=== PATIENT | male | born 1995 | race Two or more races ===

== ENCOUNTER 2021-02-04 07:12 | Emergency (ER) | payer MEDICAID, SELFPAY ==
[2021-02-04 07:15] VITALS: BP 139/60; PULSE 65; RESP 12; TEMP 36; O2SAT 100; BMI 22.6
--- NOTE | 2021-02-04 07:50 | ED_ITS ---
HPI - General Adult General Chief complaint: Abdominal Pain Stated complaint: abd pain, vomiting Time Seen by Provider: 02/04/21 07:26 Source: patient and family ( Radha) Mode of arrival: ambulatory Limitations: no limitations History of Present Illness HPI narrative: 25-year-old male who presents emergency department for evaluation of vomiting and abdominal pain. The patient states that he has had abdominal pain and vomiting for 2 years. He states that over the past week his symptoms got worse. He states that he vomits 4-5 times at night, the vomiting usually starts at around 2 or 3:00 a.m. in the morning. He states that this morning he vomited for 5 times and did notice streaks of blood in his emesis. The patient also complains of abdominal pain. He points to his epigastric area when asked to localize the pain. Describes the pain as sharp pain which is intermittent, the pain is 8/10 at its worst. The pain is made worse with eating. The patient states that approximately 1 year prior he was seen at [facility] with similar symptoms but also had blood per rectum. He states that his provider referred him to a teaching supervisor but he never followed up. He states that he has not had any similar episodes of hematochezia, he denies any changes bowel movements. Patient states that in the past he has been on omeprazole and this has helped. He states that he does have an acid taste in the back of his throat and takes Tums on a regular basis. The patient states that over the last 2 years he has lost 38 lb unintentionally. Patient also smokes marijuana 4 to 5 times a day. Related Data Previous Rx's Medication Instructions Recorded omeprazole 20 mg capsule,delayed 20 mg PO DAILY #30 cap 02/04/21 release ondansetron 4 mg disintegrating 4 mg PO Q6-8H PRN #20 tab 02/04/21 tablet Allergies Allergy/AdvReac Type Severity Reaction Status Date / Time bee pollen [BEE STINGS] AdvReac Severe ANAPHYLAXIS Unverified 01/23/20 18:56 Review of Systems Review of Systems: Yes all other systems are reviewed and are negative [facility] Past Medical History [facility] Narrative: Past medical history: Asthma. 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 The patient is and his is here in the emergency department with him. The patient smokes 1/2 pack of cigarettes x1 year. He states that he rarely drinks alcohol. The patient does smoke marijuana 4 to 5 times a day for at least 2 years. He denies any other drug use. Social History Social History Patient Tobacco Use Status: Current everyday Tobacco user Use of substances other than those prescribed or required for medical reasons: Yes Substance Use Type: Marijuana Substance Use Frequency: Daily Advance Directives: No Advance Directives Information Provided: No Physical Exam Vital Signs: Vital Signs: Last Vital Signs Temp 96.8 F 02/04/21 07:15 Pulse 65 02/04/21 07:15 Resp 12 02/04/21 07:15 BP 139/60 02/04/21 07:15 Pulse Ox 100 02/04/21 07:15 Body Mass Index 22.6 Const: General: cooperative and no acute distress Orientation/consciousness: oriented to person and oriented to place Limitations: no limitations HENMT: Head: Yes normal to inspection, Yes normocephalic and Yes atraumatic Ears: external ears normal General nose exam: Normal external nose present Face and sinus: Yes normal facial exam Mouth: Normal oral and palatal mucosa present Throat: Yes posterior oropharynx normal Eyes: General: appearance normal, both eyes and all related structures Pupils: Equal, round and reactive pupils present Neck: Neck: Yes normal visual inspection, Yes no lymphadenopathy, Yes trachea midline and Yes supple Chest: Chest palpation & inspection: normal inspection of the chest and normal palpation of entire chest wall Resp: Effort & Inspection: normal respiratory effort and able to speak in complete sentences Auscultation: clear to auscultation bilaterally Cardio: Rate: regular rate Rhythm: regular rhythm Heart sounds: S1 normal heart sound present, S2 normal heart sound present and no murmurs GI: Inspection: Yes normal to inspection Palpation (GI): Soft to palpation, nontender and no guarding Auscultation: normal bowel sounds : General: Yes no CVA tenderness Back/Spine/Pelvis: Back: no CVA tenderness Skin: General skin exam: no rashes or lesions noted Neuro: General: oriented to person and oriented to place Cranial nerves: Yes CN's II-XII intact bilaterally and Yes Equal, round and reactive pupils present Cognition (Neuro): normal cognition Motor exam (neuro): 5/5 motor strength present throughout Extrem: General: Yes normal to inspection Psych: Appearance: grossly normal Speech and movement: Normal speech and mo vement present Affect: normal affect Attitude: cooperative Thought process: Normal thought process present Thought content: Normal thought content present Course Course Course Narrative: 25-year-old male who presents emergency department for evaluation of 1 week of vomiting multiple episodes mainly at night, states that last night he vomited 4-5 times and did notice streaks of blood in his emesis. Patient states that he vomits frequently over the past 2 years and vomiting is often at night. He also complains of midepigastric pain. Patient has had a 38 lb weight loss over 2 years. The patient does smoke marijuana daily. Vital signs were normal. examination was unremarkable, the patient has no abdominal tenderness at this time. I did order laboratory evaluation to include CBC, CMP, lipase. Patient will be treated with normal saline IV x1 L and Zofran 4 mg IV. 0856: Patient is feeling better after the above treatment. Patient's CBC, CMP and lipase were normal. The patient was started on omeprazole 20 mg once a day for 1 month and Zofran ODT 4 mg every 6-8 hours as needed for nausea and vomiting. He was advised to stop smoking marijuana. The patient was discharged home. Medical Decision Making Lab Data Result diagrams: 02/04/21 07:55 02/04/21 07:55 Labs: Lab Results 02/04/21 02/04/21 Range/Units 07:55 07:55 WBC 10.1 (4.8-10.8) X10*3/uL RBC 5.41 (4.60-5.80) X10*6/uL Hgb 15.3 (14.0-18.0) g/dl Hct 45.9 (42-52) % MCV 84.8 (80-98) fL MCH 28.3 (27.0-33.0) pg MCHC 33.3 (31.0-36.0) g/dl RDW 12.2 (11.0-16.0) % Plt Count 307 (160-400) X10*3/uL MPV 9.5 (9.4-12.4) fL Immature Gran % (Auto) 0.4 (0.0-0.4) % Neut % (Auto) 77.3 H (45-73) % Lymph % (Auto) 15.8 L (20-40) % Putnam % (Auto) 5.6 (2-11) % Eos % (Auto) 0.6 (0-4) % Baso % (Auto) 0.3 (0-2) % Lymph # (Auto) 1.6 (1.2-4.9) X10*3/uL Putnam # (Auto) 0.6 (0.1-1.2) X10*3/uL Eos # (Auto) 0.1 (0.0-0.4) X10*3/uL Baso # (Auto) 0.0 (0.0-0.2) X10*3/uL Abs Immat Gran (auto) 0.04 H (0.00-0.03) X10*3/uL Absolute Neuts (auto) 7.8 (2.0-8.3) X10*3/uL Absolute Nucleated RBC 0.000 (0.0-0.012) X10*3/uL Nucleated RBC % (auto) 0.0 (0.0-0.2) /100WBC Sodium 138 (135-145) mmol/L Potassium 4.2 (3.3-5.1) mmol/L Chloride 104 (96-108) mmol/L Carbon Dioxide 24 (22-29) mmol/L Anion Gap 14 (12-20) BUN 8 L (9-16) mg/dL Creatinine 0.82 (0.5-1.4) mg/dL Estim Creat Clear Calc 141.8 Estimated GFR > 60 Random Glucose 100 (60-115) mg/dL Calcium 9.9 (8.4-10.2) mg/dL Total Bilirubin 0.9 (0.0-1.0) mg/dL AST 16 (5-37) U/L ALT 12 (0-40) U/L Alkaline Phosphatase 75 (39-117) U/L Total Protein 8.1 H (6.5-8.0) g/dL Albumin 4.7 (3.5-5.0) g/dL Lipase 19 (8-78) U/L Discharge Plan Discharge Clinical Impression: Cannabinoid hyperemesis syndrome Gastritis Qualifiers: Gastritis type: unspecified gastritis Chronicity: acute Gastritis bleeding: without bleeding Qualified Code(s): K29.00 - Acute gastritis without bleeding Hematemesis Qualifiers: Nausea presence: with nausea Qualified Code(s): K92.0 - Hematemesis Patient Disposition: Home, Self-Care Instructions: Gastritis (ED), Cyclic Vomiting Syndrome (ED) Additional Instructions: Your blood work was normal which is reassuring. Your symptoms and exam are consistent with gastritis (inflammation of the stomach) I am prescribing Prilosec (omeprazole) 20 mg pills, take 1 pill once a day for 1 month. This medication shots off the acid production your stomach nebulizer stomach and esophagus to heal. I am also prescribing Take Zofran ODT 4 mg pills, 1 pill dissolved in your mouth every 8 hours as needed for nausea and vomiting. Recurrent vomiting is often caused by daily marijuana use. This is called cyclic vomiting syndrome or marijuana/cannabis hyperemesis syndrome. The treatment is to stop smoking marijuana for at least 6 weeks and they should improve your nausea and vomiting as well. Follow-up with your doctor in 2 days. Please return to the emergency department if your symptoms get worse or if you develop any symptoms that are concerning to you. Prescriptions: New omeprazole 20 mg capsule,delayed release(DR/EC) 20 mg PO DAILY Qty: 30 RF: 0 ondansetron 4 mg tablet,disintegrating 4 mg PO Q6-8H PRN (Reason: nausea and vomiting) Qty: 20 RF: 0
[2021-02-04 07:58] LABS: MANUAL DIFF FLAG NO
[2021-02-04] MEDS: ondansetron HCL 4 MG/2 ML VIAL IVPUSH (07:59)
[2021-02-04] MEDS: 0.9 % Sodium Chloride 1,000 ML 999 ML IV (07:59)
[2021-02-04 08:02] LABS: Basophils Percent Auto 0.3 % (0-2); Eosinophils Absolute Auto 0.1 X10*3/uL (0.0-0.4); Eosinophils Percent Auto 0.6 % (0-4); Hematocrit 45.9 % (42-52); Hemoglobin 15.3 g/dl (14.0-18.0); Imm Gran Abs Auto 0.04 X10*3/uL (0.00-0.03); Imm Gran Pct Auto 0.4 % (0.0-0.4); Lymphocytes Absolute Auto 1.6 X10*3/uL (1.2-4.9); Lymphocytes Percent Auto 15.8 % (20-40); Mean Corpuscular HGB Conc 33.3 g/dl (31.0-36.0); Mean Corpuscular Hemoglobin 28.3 pg (27.0-33.0); Mean Corpuscular Volume 84.8 fL (80-98); Mean Platelet Volume 9.5 fL (9.4-12.4); Monocytes Absolute Auto 0.6 X10*3/uL (0.1-1.2); Monocytes Percent Auto 5.6 % (2-11); Neutrophils Absolute Auto 7.8 X10*3/uL (2.0-8.3); Neutrophils Percent Auto 77.3 % (45-73); Platelet Count 307 X10*3/uL (160-400); Red Blood Count 5.41 X10*6/uL (4.60-5.80); Red Cell Distribution Width 12.2 % (11.0-16.0); White Blood Count 10.1 X10*3/uL (4.8-10.8)
[2021-02-04 08:20] LABS: Alanine Aminotransferase 12 U/L (0-40); Albumin Level 4.7 g/dL (3.5-5.0); Alkaline Phosphatase 75 U/L (39-117); Anion Gap 14 (12-20); Aspartate Amino Transferase 16 U/L (5-37); Bilirubin Total 0.9 mg/dL (0.0-1.0); Blood Urea Nitrogen 8 mg/dL (9-16); Calcium 9.9 mg/dL (8.4-10.2); Carbon Dioxide 24 mmol/L (22-29); Chloride 104 mmol/L (96-108); Creatinine Clr Calc Pharmacy 141.8; Estimated Glomerular Filt Rate > 60; Glucose Random 100 mg/dL (60-115); Lipase 19 U/L (8-78); Potassium 4.2 mmol/L (3.3-5.1); Sodium 138 mmol/L (135-145); Total Protein 8.1 g/dL (6.5-8.0)
[2021-02-04 09:02] VITALS: BP 114/70; PULSE 64; RESP 15; TEMP 36.8; O2SAT 98
== END 2021-02-04 09:12 | disposition home or self-care (01) ==
PROVIDERS: Emergency Provider Emergency Medicine Emergency Medical Services; PCP Student in an Organized Health Care Education/Training Program
DX: K29.00 Acute gastritis without bleeding (principal); K92.0 Hematemesis; F12.99 Cannabis use, unspecified with unspecified cannabis-induced disorder; F17.200 Nicotine dependence, unspecified, uncomplicated; Z71.6 Tobacco abuse counseling; Z79.899 Other long term (current) drug therapy
CPT/HCPCS: 36415; 80053; 83690; 85025; 96361; 96374; 99284; J2405

== ENCOUNTER 2023-01-16 14:58 | Outpatient (REF) | payer MEDICAID, SELFPAY ==
[2023-01-18 12:34] LABS: C. trachomatis RNA TMA NOT DETECTED (NOT DETECTED); N. gonorrhoeae RNA TMA NOT DETECTED (NOT DETECTED)
== END 2023-01-16 14:59 | disposition home or self-care (01) ==
LOC: HO.CHCLNP 14:58
PROVIDERS: Visit Provider Family Medicine
DX: N48.1 Balanitis (principal)
CPT/HCPCS: 36415; 87491; 87591

== ENCOUNTER 2023-05-27 15:12 | Emergency (ER) | payer SELFPAY ==
--- NOTE | ~2023-05-27 | XR_ITS ---
EXAMINATION: XR HAND, RIGHT CLINICAL INFORMATION: Work injury tenderness swelling. COMPARISON: None available. TECHNIQUE: PA, lateral, and oblique views of the right hand. FINDINGS: The bones and soft tissues are normal. No fracture. Alignment is anatomic. Joint spaces are maintained. No erosions or soft tissue calcifications. XR/XR hand RT min 3V IMPRESSION: Normal right hand.
[2023-05-27 15:14] VITALS: BP 117/77; PULSE 75; RESP 18; TEMP 36.1; O2SAT 98; BMI 28.4
--- NOTE | 2023-05-27 15:14 | ED.GENADULT ---
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 Currently is without pain but he does have localized swelling over the dorsum of the 2nd MCP Related Data Previous Rx's Medication Instructions Recorded omeprazole 20 mg capsule,delayed 20 mg PO DAILY #30 caps 02/04/21 release ondansetron 4 mg disintegrating 4 mg PO Q6-8H PRN nausea and 02/04/21 tablet vomiting #20 tabs Allergies Allergy/AdvReac Type Severity Reaction Status Date / Time lobster Allergy Anaphylaxis Verified 05/27/23 15:17 bee pollen [BEE STINGS] AdvReac Severe ANAPHYLAXIS Unverified 01/23/20 18:56 Review of Systems Review of Systems: Yes all other systems are reviewed and are negative PMFSH Past Medical History Attestation statement: The following information was validated with the patient. Source: old records reviewed Onset Date is defined in the Problem List Problems that require an onset date and time if occurred within 24 hrs of arrival to the ED Aortic Dissection and Rupture; Neurologic impairment; Cardiopulmonary Arrest; Endotracheal Intubation; Insertion or Replacement of Mechanical Circulatory Assist Device Social History Social History Patient Tobacco Use Status: Current everyday Tobacco user Substance Use Type: Marijuana Advance Directives: No Advance Directives Information Provided: No Physical Exam ED Vital Signs: Vital Signs - 24 hr 05/27/23 15:14 05/27/23 15:39 Temperature 97 F 98 F Pulse Rate 75 71 Respiratory Rate 18 19 Blood Pressure 117/77 113/73 Pulse Oximetry 98 98 Oxygen Delivery Method Room Air Room Air BMI result Body Mass Index 28.4 Appearance: Alert.?Oriented to person, place and time. No acute distress.?Normal affect. Neck: Normal inspection.? Neck supple.?? CVS: Heart sounds normal. Normal heart rate and rhythm.? Pulses normal.?? Respiratory: No respiratory distress.? Lung sounds clear to auscultation bilaterally?? Abdomen: Soft and non-tender. Normoactive bowel sounds. Skin: Skin warm and dry.? Normal skin color.? Extremities: No lower extremity edema.? No calf ttp?right 2nd and 3rd MCP with localized swelling and mild tenderness without palpable or obvious deformity Neuro: Moves all extremities spontaneously. Sensation intact bilaterally. Ambulates with normal steady gait. Course Course Course Narrative: This is a rapid medical exam: Additional HPI, ROS, PE not included below will be deferred to primary provider. Patient is a 27-year-old right hand dominant male presenting to the ED with complaint of right hand injury sustained at work yesterday. States the door to the international editorial producer fell onto his hand. Tenderness and mild swelling over 2nd metacarpal, full ROM to all fingers. Plan: X-ray Medical Decision Making Medical Decision Making MDM Narrative: Patient is a 27-year-old male who presents emergency department for evaluation traumatic swelling to right hand after injury as per HPI. Currently is without pain. Concern based on mechanism for fracture, dislocation, contusion. XR imaging was obtained which reveals No evidence of fracture dislocation. Symptoms consistent with a contusion. Discussed conservative treatment, acetaminophen/ ibuprofen for pain, outpatient follow-up with primary care provider. Stable for discharge home. Differential Diagnosis Differential Diagnoses: The differential diagnosis associated with the presentation includes (As noted above) Independent Interpretation I performed an independent interpretation of an: Plain X-Ray (I personally interpreted XR imaging and agree with radiologist impression.) Radiology Impression Discussion of test interpretation with radiology: I have reviewed the radiologist's reading. Radiologist Impression: XR/XR hand RT min 3V IMPRESSION: Normal right hand. Prescription Management I considered prescription management with: Pain Medication (Acetaminophen/ibuprofen) Discharge Plan Discharge Clinical Impression: Contusion of hand, right Patient Disposition: Home, Self-Care Instructions: Contusion in Adults (ED), R.I.C.E. Treatment (ED) Additional Instructions: no evidence of fracture on x-ray today. You can take ibuprofen 200 mg, 3 tablets (600mg) every 6-8 hours as needed for pain, in addition to Tylenol 500 mg, 2 tablets (1,000mg) every 4-6 hours as needed for pain, but not to exceed 3 doses daily (3,000mg).? Prescriptions: No Action omeprazole 20 mg capsule,delayed release(DR/EC) 20 mg PO DAILY Qty: 30 0RF ondansetron 4 mg tablet,disintegrating 4 mg PO Q6-8H PRN (Reason: nausea and vomiting) Qty: 20 0RF
[2023-05-27 15:39] VITALS: BP 113/73; PULSE 71; RESP 19; TEMP 36.6; O2SAT 98
== END 2023-05-27 17:08 | disposition home or self-care (01) ==
PROVIDERS: Emergency Provider Emergency Medicine Emergency Medical Services; PCP Family Medicine
DX: S60.221A Contusion of right hand, initial encounter (principal); W20.8XXA Other cause of strike by thrown, projected or falling object, initial encounter; Y93.G1 Activity, food preparation and clean up; Y92.511 Restaurant or cafe as the place of occurrence of the external cause; Y99.0 Civilian activity done for income or pay
CPT/HCPCS: 73130; 99282; 99283

== ENCOUNTER 2024-01-29 13:05 | Outpatient (REF) | payer MEDICAID, SELFPAY ==
--- NOTE | ~2024-01-29 | US_ITS ---
EXAMINATION: US SCROTUM CLINICAL INFORMATION: Pain. History of undescended left testicle diagnosed at age of 11.. COMPARISON: None available. TECHNIQUE: A sonogram of the scrotum was performed assessing correa-scale appearance and color Doppler flow. Spectral Doppler analysis of the arterial and venous flow were performed in the testes bilaterally. FINDINGS: RIGHT: Right testicle measures 4.2 x 2.3 x 3.8 cm, volume 19.2 mL. No focal testicular parenchymal lesions are visualized. Spectral Doppler analysis of the arterial and venous flow is normal in the right testis. Right epididymal head is normal in size. No right hydrocele or varicocele is seen. Right epididymal Doppler flow is normal. LEFT: Left testicle measures 3.7 x 1.8 x 2.9 cm, volume 10.1 mL. No focal testicular parenchymal lesions are visualized. Spectral Doppler analysis of the arterial and venous flow is normal in the left testis. Left epididymal head is normal in size. No left hydrocele or varicocele is seen. Left epididymal Doppler flow is normal. US/US scrotum IMPRESSION: 1. Normal sonographic appearance of bilateral testicles with no evidence of mass lesion or torsion. 2. The left testicle is slightly smaller than the right testicle, but appears to be fully descended on the current examination. Electronically signed by: Cesar Altamirano MD 01/31/2024 07:55 AM EDT
== END 2024-01-29 13:06 | disposition home or self-care (01) ==
LOC: HO.US 13:05
PROVIDERS: PCP Student in an Organized Health Care Education/Training Program; Visit Provider Student in an Organized Health Care Education/Training Program
DX: N50.811 Right testicular pain (principal)
CPT/HCPCS: 76870

== ENCOUNTER 2025-02-05 15:49 | Outpatient (REF) | payer MEDICAID, SELFPAY ==
--- OUTSIDE RECORDS SUMMARY | 2025-02-05 15:30 | XMS_ITS | Encounter Summary ---
Author Organization [employer] Address [address] [place] [address] Care Team Providers Care Automation Qtp Tester Name Role Phone Luis Pritchard CNP Primary Care Provider [phone] Encounter Details Date Type Department Care Team ([facility] Contact Info) Description 02/05/2025 3:30 PM EDT Office Visit [facility] [address], [place] [phone] Luis Pritchard CNP [address], [place] [phone] Viral illness (Primary Dx) Social History Tobacco Use Types Packs/Day Years Used Date Smoking Tobacco: Former Cigarettes 0.3 1 2 022 - 2022 Passive Smoke Exposure: Past Smokeless Tobacco: Current Alcohol Use Standard Drinks/Week Comments Never 0 (1 standard drink = 0.6 oz pur e alcohol) Depression Answer Date Recorded Patient Health Questionnaire-9 Score 0 02/05/2025 Patient Health Questionnaire-9 Score 0 02/05/2025 Last PHQ-9: Questionnaire Data Not on file 1 Housing Stability Answer Date Recorded What is your housing situation today? I have sally holman 02/05/[address] you li ve. Do you have problems with any of the following? None of the above 02/05/2025 Food Insecurity Answer Date Recorded Within the past 12 months, y ou worried that your food would run out before you got money to buy more: Never True 02/05/2025 Within the past 12 months,th e food you bought just didn't last and you didn't have enough money to get more: Never True 05/2024 Transportation Answer Date Recorded In the past 12 months, has l ack of transportation kept you from medical appts, meetings, work or from getting things needed for daily living? No 02/05/2025 Utilities Answer Date Recorded In the past 12 months, has t he electric, gas, oil or water company threatened to shut off services in your home? No 02/05/2025 Depression Answer Date Recorded Patient Health Questionnaire-2 Score 0 02/05/2025 Internet Access Answer Date Recorded Internet Access Q1 Yes 02/05/2025 Internet Access Q2 Not on file 02/05/2025 Sex and Gender Information Value Date Recorded Sex Assigned at Male 03/07/2022 10:29 AM EDT Legal Sex Male 10:29 AM EDT Gender Identity Male 03/07/2022 10:29 AM EDT Sexual Orientation Choose not to disclose 2021 10:29 AM EDT documented as of this encounter Last Filed Vital Signs Vital Sign Reading Time Taken Comments Blood Pressure 136/86 02/05/2025 3:35 PM EDT Pulse 76 02/05/2025 3:35 PM EDT Temperature 36.6 C (97.9 F) 02/05/2025 3:35 PM EDT Respiratory Rate 18 02/05/2025 3:35 PM EDT Oxygen Saturation 98% 02/05/2025 3:35 PM EDT Inhaled Oxygen Concentration - - Weight 91.2 kg (201 lb) 02/05/2025 3:35 PM EDT Height 175.3 cm (5' 9 ) 02/05/2025 3:35 PM EDT Body Mass Index 29.68 02/05/2025 3:35 PM EDT documented in this encounter Functional Status * Over the past 2 weeks, how often have you been bothered by any of the following problems? Question Answer Date of Assessment Author Patient Health Questionnaire -2 Score 0 02/05/2025 3:38 PM EDT Bridget Quintero MA * Little interest or pleasure in doing things Answer Date of Assessment Author Not at all 02/05/2025 3:38 PM EDT Jaqueline Mark MA * Feeling down, depressed, or hopeless Answer Date of Assessment Author Not at all 02/05/2025 3:38 PM EDT Jaqueline Mark MA * Trouble falling or staying asleep, or sleeping too much Answer Date of Assessment Author Not at all 02/05/2025 3:38 PM EDT Jaqueline Mark MA * Feeling tired or having little energy Answer Date of Assessment Author Not at all 02/05/2025 3:38 PM EDT Jaqueline Mark MA * Poor appetite or overeating Answer Date of Assessment Author Not at all 02/05/2025 3:38 PM EDT Jaqueline Mark MA * Feeling bad about yourself - or that you are a failure or have let yourself or your family down Answer Date of Assessment Author Not at all 02/05/2025 3:38 PM EDT Jaqueline Mark MA * Trouble concentrating on things, such as reading the newspaper or watching television Answer Date of Assessment Author Not at all 02/05/2025 3:38 PM EDT Jaqueline Mark MA * Moving or speaking so slowly that other people could have noticed? Or the opposite - being so fidgety or restless that you have been moving around a lot more than usual. Answer Date of Assessment Author Not at all 02/05/2025 3:38 PM EDT Jaqueline Manriquez MA * Thoughts that you would be better off or hurting yourself in some way Answer Date of Assessment Author Not at all 02/05/2025 3:38 PM EDT Jaqueline Mark MA * Patient Health Questionnaire-9 Score Answer Date of Assessment Author 0 02/05/2025 3:38 PM EDT Jaqueline Mark MA documented as of this encounter Plan of Treatment Scheduled Orders Name Type Priority Associated Diagnoses Orde r Schedule Basic Metabolic Panel Lab Routine Viral illness Expected: 02/05/2025 (Approximate), Expires: 02/05/2026 CBC auto differential Lab Routine Viral illness Expected: 02/05/2025 (Approximate), Expires: 02/05/2026 documented as of this encounter Procedures Procedure Name Priority Date/Time Associated Diagnosis Comments POCT INFLUENZA B (ID NOW RAPID MOLECULAR) Routine 02/05/2025 3:50 PM EDT Viral illness POCT RAPID COVID ANTIGEN Routine 02/05/2025 3:50 PM EDT Viral illness POCT INFLUENZA A (ID NOW RAPID MOLECULAR) Routine 02/05/2025 3:49 PM EDT Viral illness documented in this encounter Results * POCT Rapid COVID Ag (02/05/2025 3:50 PM EDT) Rapid COVID Ag Negative QC Media Lot # Comment:[id number] Lot# Expiration Date Comment:11/29/2025 Swab 02/05/2025 3:50 PM EDT [facility] POINT OF CARE TEST ENTER/ EDIT ORDERABLES Final Result * Influenza B (ID NOW Rapid Molecular) (02/05/2025 3:50 PM EDT) Influenza B Negative Negative, Indeterminate [facility] QC Media Lot # [id number] Comment:[id number] Lot# Expiration Date [facility] Comment:06/07/2026 Swab 02/05/2025 3:50 PM EDT [facility] POINT OF CARE TEST ENTER/ EDIT ORDERABLES Final Result Performing Organization Address [facility]/ZIP Co de Phone Number [facility] [address] [place] [phone] * Influenza A (ID NOW Rapid Molecular) (02/05/2025 3:49 PM EDT) Influenza A Negative Negative, Indeterminate [facility] QC Media Lot # [id number] Comment:[id number] Lot# Expiration Date [facility] Comment:06/07/2026 Swab 02/05/2025 3:49 PM EDT [facility] POINT OF CARE TEST ENTER/ EDIT ORDERABLES Final Result [facility] [address] [place] [phone] documented in this encounter Visit Diagnoses Diagnosis Viral illness- Primary Unspecified viral infection, in conditions classified elsewhere and of unspecified site documented in this encounter Additional Health Concerns Assessment Noted Time PHQ-9 Depression Total Score: 0 02/06/20 3:38 PM EDT documented as of this encounter Care Teams Automation Qtp Tester Relationship Specialty Start Date End Date Luis Pritchard CNP PCP - General Family Medicine 12/13/24 documented as of this encounter
--- OUTSIDE RECORDS SUMMARY | 2025-02-05 16:28 | XMS_ITS | Clinical Summary ---
Author Organization [facility] Address [address] [address] Phone Care Team Providers Care Roll Bucker Name Role Phone Unknown, Unknown Primary Care Provider Rita kaye Allergies Active Allergy Reactions Criticality Noted Date Comments Shellfish Containing Products Swelling 2018 Medications ferrous sulfate 324 mg (65 mg [place] iron) TbEC Take 1 tablet (324 mg total) by mouth daily with breakfast. 30 tablet 2 10/16/2018 Active Active Problems Problem Noted Date Diagnosed Date Male infertility 10/16/2018 Iron deficiency anemia due to chronic blood loss 10/16/2018 Social History Tobacco Use Types Packs/Day Years Used Date Smoking Tobacco: Former Smokeless Tobacco: Never Alcohol Use Standard Drinks/Week Comments Not Currently 0 (1 standard drink = 0.6 oz pur e alcohol) Education Answer Date Recorded Are you interested in more education? Not on vivienne e 09/02/2022 Are you concerned about learning? Not on file 09/02/2022 No 09/02/2022 No 09/02/2022 Digital Access Answer Date Recorded No 10/01/2022 No 10/01/2022 No 10/01/2022 Reliable internet access at home? Not on file 10/01/2022 Device with a working camera? Not on file Sex and Gender Information Value Date Recorded Sex Assigned at Not on file Legal Sex Male 8:28 AM EDT Gender Identity Not on file Sexual Orientation Not on file Last Filed Vital Signs Vital Sign Reading Time Taken Comments Blood Pressure - - Pulse - - Temperature - - Respiratory Rate - - Oxygen Saturation - - Inhaled Oxygen Concentration - - Weight 88.5 kg (195 lb) 10/16/2018 3:10 PM EDT Height 180.3 cm (5' 11 ) 10/16/2018 3:10 PM EDT Body Mass Index 27.2 10/16/2018 3:10 PM EDT Plan of Treatment Health Maintenance Due Date Last Done Comments DEPRESSION SCREENING 2006 SMOKING Hx and SMOKELESS TOB ACCO SCREENING 07/18/2007 INFLUENZA VACCINE (#1) 2024 COVID-19 VACCINE (2 - 2024-2 6 season) 2025 01/04/2021 Adult Td,Tdap Booster 11/10/2027 11/09/2017 HEPATITIS C SCREENING Completed 10/08/2018 HIV ONE-TIME SCREENING (18-6 5 YEARS) Completed 10/08/2018 HEPATITIS A VACCINES Aged Out No long er eligible based on patient's age to complete this topic HIB VACCINES Aged Out No longer eligi ble based on patient's age to complete this topic MENINGOCOCCAL VACCINES (ACWY) Aged Out No longer eligible based on patient's age to complete this topic MENINGOCOCCAL VACCINES (B) Aged Out N o longer eligible based on patient's age to complete this topic PNEUMOCOCCAL VACCINES (0-49 years) Aged Out No longer eligible based on patient's age to complete this topic Medical Devices Not on file Procedures Procedure Name Priority Date/Time Associated Diagnosis Comments HEPATITIS C ANTIBODY, QUALITATIVE Routine 10/08/2018 8:45 AM EDT Male infertility from Last 3 Months or Most Recently Relevant to Health Maintenance Results * Hepatitis C antibody, qualitative (10/08/2018 8:45 AM EDT) HCV Negative Negative [facility] Comment: This is a screening test and should be confirmed with molecular testing Blood 10/08/2018 8:45 AM EDT 10/08/2018 8:49 AM EDT us Don Bishop MD LAB BLOOD ORDERABLES Final Resu lt [facility] [address] [place] [address] from Last 3 Months or Most Recently Relevant to Health Maintenance Insurance C3 ACO C[employer] ACO C3 ACO C3 ACO C3 ACO C3 ACO C3 ACO C3 ACO Care Teams Roll Bucker Relationship Specialty Start Date End Date Unknown, Unknown, PCP - General 10/08/18 Additional Source Comments The information contained in this document represents components of the legal health record. It is not the complete legal health record.[facility]
--- OUTSIDE RECORDS SUMMARY | 2025-02-05 16:28 | XMS_ITS | Clinical Summary ---
Author Organization [employer] Address [address] [facility] 7t [place] [address] Care Team Providers Care Metal Fabrication Supervisor Name Role Phone Macho Daingallitotrey RONY Primary Care Provider [phone] Allergies Active Allergy Reactions Criticality Noted Date Comments Shellfish Allergy Swelling 10/16/2018 Medications ProAir HFA 108 (90 Base) MCG/ACT inhaler INHALE 2 PUFFS BY MOUTH FOUR TIMES DAILY NEEDED FOR SHORTNESS OF BREATH 12/02/19 22 Active omeprazole (PriLOSEC) [address] capsule TAKE 1 CAPSULE BY MOUTH TWICE DAILY BEFORE MEALS 07/17/19 22 Active cyclobenzaprine (Flexeril) 5 MG tabletIndications: Costochondritis, acute Take 1 tablet (5 mg) by mouth in the morning. 30 tablet 06/01/19 23 Active permethrin (Elimite) 5 % cream apply to skin from hairline to toes and wash off 8-10 hours later 200 g 12/10/19 23 Active triamcinolone (Kenalog) 0.5 % ointment Apply topically 2 times daily. 60 g 12/10/19 23 Active cetirizine (ZyrTEC) 10 MG tablet Take 1 tablet (10 mg) by mouth in the morning for 14 days. 14 tablet 12/10/19 23 Active doxepin (SINEquan) 10 MG capsule Take 1 capsule (10 mg) by mouth at bedtime. 14 capsule 12/10/19 23 Active hydrocortisone 2.5 % ointmentIndication s:Balanitis Apply topically 2 times daily. 60 g 1 01/17/20 23 Active clotrimazole (Lotrimin) 1 % cream Apply topically 2 times daily. 30 g 12/16/19 25 Active azithromycin (Zithromax) 250 MG tablet TAKE DIRECTED PER PACKAGE DIRECTION FOR 5 DAYS 01/18/20 25 Active benzonatate (Tessalon) 100 MG capsule TAKE 1 CAPSULE BY MOUTH THREE TIMES DAILY FOR 7 DAYS NEEDED FOR COUGH 01/22/20 25 Active fluticasone (Flonase) 50 MCG/ACT nasal spray USE 1 SPARY INTO EACH NOSTRIL DAILY FOR 90 DAYS 01/18/20 25 Active predniSONE (Deltasone) 20 MG tablet Take 1 tablet by mouth Once per day. 01/18/20 25 Active acetaminophen (Tylenol) 325 MG tablet Take 650 mg by mouth. 06/21/19 22 Active dextran 70-hypromellose (artificial tears) 0.1-0.3 % ophthalmic solutionIndication s:Acute conjunctivitis of left eye, unspecified acute conjunctivitis type Administer 1 drop into the left eye every 2 (two) hours. 15 mL 01/17/20 24 025 Active Problems Problem Noted Date Diagnosed Date Balanitis 01/16/2023 Assessment & Plan (01/08/2024 11:55 PM EDT): Will prescribe oral fluconazole, continue with clotrimazole, will place new referral for urology evalaution Assessment & Plan (01/16/2023 1:47 PM EDT): Likely balanitis improved antifungal, will send treatment with antifungal and steroid, will send out testing. Followup with PCP prn Rash 12/09/2022 Assessment & Plan (12/09/2022 1:36 PM EDT): Ddx. Scabies vs Bed bugs. See media. Present in all extremities. Advised patient to clean all bedding, furniture, clothes, and shoes in room with hot water. Will start on cetirizine 10 mg and doxepin 10 for symptoms relief. Will also send Kenalog 0.5% ointment and Elimite 5% cream. Male infertility 10/16/2018 Iron deficiency anemia due to chronic blood loss 10/16/2018 Gastroesophageal reflux disease without esophagi tis 10/16/2017 Encounters Date Type Department Care Team Description 02/05/2025 3:30 PM EDT Office Visit [facility] [address] [place] [address] Luis Pritchard CNP Viral illness (Primary Dx) 02/05/2025 Travel 02/05/2025 Telephone [facility] [address] [place] [address] Luis Pritchard CNP chart prep 02/03/2025 Telephone [facility] [address] [place] [address] Luis Pritchard CNP NTTS Follow up 12/13/2024 Refill [facility] [address] [place], [place] [phone] Venus Panda MD from Last 3 Months Immunizations Immunization Administration Dates Next Due Pfizer Covid-19 Vaccine 12+ 01/04/2021 Tdap 11/09/2017 Social History Tobacco Use Types Packs/Day Years Used Date Smoking Tobacco: Former Cigarettes 0.3 1 2 022 - 2022 Passive Smoke Exposure: Past Smokeless Tobacco: Current Tobacco Cessation:Ready to Q uit: Not Asked; Counseling Given: Not Answered Alcohol Use Standard Drinks/Week Comments Never 0 [...] not to disclose 2021 10:29 AM EDT Last Filed Vital Signs Vital Sign Reading [...] Mass Index 29.68 02/05/2025 3:35 PM EDT Plan of Treatment Health Maintenance Due Date Last Done Comments Dental Oral Exam 1994 Dental Prophylaxis 1994 Dental X-Ray: Full Mouth 1994 Lipid Panel 1994 Family Planning (PISQ) 2009 HPV Vaccines (1 - Male 3-dos e series) 2009 Hepatitis B Vaccines (1 of 3 - 19+ 3-dose series) 2013 Dental X-Ray: Bitewings 04/18/2024 04/17/2023 COVID-19 Vaccine (2 - 2024-2 6 season) 2025 01/04/2021 Influenza Vaccine (#1) 2025 Alcohol/Substance Use Screening 02/05/2026 02/05/2025 Depression Screening 02/05/2026 02/05/2025, 02/05/2025 Disability Screening 02/05/2026 02/05/2025 SDOH Screening 02/05/2026 02/05/2025 Tobacco Screening 02/05/2026 02/05/2025 DTaP/Tdap/Td Vaccines (2 - T d or Tdap) 11/10/2027 11/09/2017 Zoster Vaccines (1 of 2) 2044 RSV Patients and Patients Aged 60 years or older (1 - 1-dose 75+ series) 2069 HIV Screening Completed 08/31/2021 Hepatitis C Screening Completed 08/31/2021 HIB Vaccines Aged Out No longer eligi ble based on patient's age to complete this topic Hepatitis A Vaccines Aged Out No long er eligible based on patient's age to complete this topic IPV Vaccines Aged Out No longer eligi ble based on patient's age to complete this topic Meningococcal B Vaccine Aged Out No l onger eligible based on patient's age to complete this topic Meningococcal Vaccine Aged Out No navi hemant eligible based on patient's age to complete this topic Pneumococcal Vaccine: Pediatrics (0 to 5 Years) and At-Risk Patients (6 to 49) Years Aged Out No longer eligible b ased on patient's age to complete this topic RSV under 20 months Aged Out No longe r eligible based on patient's age to complete this topic Rotavirus Vaccines Aged Out No longer eligible based on patient's age to complete this topic Procedures Procedure Name Priority Date/Time Associated Diagnosis Comments POCT RAPID COVID ANTIGEN Routine 02/05/2025 3:50 PM EDT Viral illness POCT INFLUENZA B (ID NOW RAPID MOLECULAR) Routine 02/05/2025 3:50 PM EDT Viral illness POCT INFLUENZA A (ID NOW RAPID MOLECULAR) Routine 02/05/2025 3:49 PM EDT Viral illness BITEWING - SINGLE RADIOGRAPHIC IMAGE Routine 04/17/2023 1:00 PM EST ZZZ HISTORICAL HEPATITIS C AB W/REFL TO HCV RNA, QN, PCR Routine 08/31/2021 10:57 AM EDT HIV 1/2 ANTIGEN/ANTIBODY, FOURTH GENERATION W/RFL Routine 08/31/2021 10:57 AM EDT from Last 3 Months or Most Recently Relevant to Health Maintenance Results * Influenza B (ID NOW Rapid Molecular) (02/05/2025 3:50 PM EDT) Influenza B Negative Negative, Indeterminate [facility] QC Media Lot # [facility] Comment:[id number] Lot# Expiration Date [facility] Comment:06/07/2026 Swab 02/05/2025 3:50 PM EDT [facility] POINT OF CARE TEST ENTER/ EDIT ORDERABLES Final Result Performing Organization Address [facility]/ZIP Co de Phone Number [facility] [address] [place] [phone] * POCT Rapid COVID Ag (02/05/2025 3:50 PM EDT) Rapid COVID Ag Negative QC Media Lot # Comment:[id number] Lot# Expiration Date Comment:11/29/2025 Swab 02/05/2025 3:50 PM EDT [facility] POINT OF CARE TEST ENTER/ EDIT ORDERABLES Final Result * Influenza A (ID NOW Rapid Molecular) (02/05/2025 3:49 PM EDT) Influenza A Negative Negative, Indeterminate [facility] QC Media Lot # [facility] Comment:[id number] Lot# Expiration Date [facility] Comment:06/07/2026 Swab 02/05/2025 3:49 PM EDT [facility] POINT OF CARE TEST ENTER/ EDIT ORDERABLES Final Result Performing Organization Address City/[facility]/ZIP Co de Phone Number [facility] [address] [place] [phone] * HEPATITIS C AB W/REFL TO HCV RNA, QN, PCR (08/31/2021 10:57 AM EDT) HEPATITIS C ANTIBODY NON-REACT MODESTA NON-REACT MODESTA [facility] INDEX 0.01 <1.00 [facility] Comment: HCV antibody was non-reactive. There is no laboratory evidence of HCV infection. In most cases, no further action is required. However, if recent HCV exposure is suspected, a test for HCV RNA (test code 17369) is suggested. For additional information please refer to http://Voxeet.Zumigo/faq/WTJ02g5 (This link is being provided for informational/ educational purposes only.) 08/31/2021 10:5 7 AM EDT us Daniel Akhtar MD HISTORICAL/NON ORDERABLE LABS Fi nal Result [facility] [address] * HIV 1/2 ANTIGEN/ANTIBODY,FOURTH GENERATION W/RFL (08/31/2021 10:57 AM EDT) HIV-1/2 ANTIGEN AND ANTIBODIES, 4TH GENERATION W/ REFLEX NON-REACT MODESTA NON-REACT MODESTA [facility] Comment: HIV-1 antigen and HIV-1/HIV-2 antibodies were not detected. There is no laboratory evidence of HIV infection. PLEASE NOTE: This information has been disclosed to you from records whose confidentiality may be protected by state law. If your state requires such protection, then the state law prohibits you from making any further disclosure of the information without the specific written consent of the person to whom it pertains, or as otherwise permitted by law. A general authorization for the release of medical or other information is NOT sufficient for this purpose. For additional information please refer to http://Voxeet.Zumigo/faq/SRM287 (This link is being provided for informational/ educational purposes only.) The performance of this assay has not been clinically validated in patients less than 2 years old. 08/31/2021 10:5 7 AM EDT us Daniel Akhtar MD LAB BLOOD ORDERABLES Final Resul t [facility] [address] from Last 3 Months or Most Recently Relevant to Health Maintenance Insurance [facility] [id number] [id number] Care Teams Metal Fabrication Supervisor Relationship Specialty Start Date End Date Luis Pritchard CNP PCP - General Family Medicine 12/13/24
--- OUTSIDE RECORDS SUMMARY | 2025-02-05 16:28 | XMS_ITS | Encounter Summary ---
Author Organization [employer] Address [address] [facility] [address]t [place] [address] Care Team Providers Care Field Cashier Name Role Phone Luis Pritchard CNP Primary Care Provider [phone] Reason for Visit * Reason Onset Date Comments NTTS Follow up 02/03/2025 Encounter Details Date Type Department Care Team ([facility] Contact Info) Description 02/03/2025 Telephone [facility] [address] [place], [place] [phone] Luis Pritchard CNP [address] [place] [address] NTTS Follow up Social History Tobacco Use Types Packs/Day Years Used Date Smoking Tobacco: Former Cigarettes 0.3 1 - 2022 Passive Smoke Exposure: Past Smokeless Tobacco: Current Alcohol Use Standard Drinks/Week Comments Never 0 (1 standard drink = 0.6 oz pur e alcohol) Sex and Gender Information Value Date Recorded Sex Assigned at Male 03/07/2022 10:29 AM EDT Legal Sex Male 10:29 AM EDT Gender Identity Male 03/07/2022 10:29 AM EDT Sexual Orientation Choose not to disclose 2021 10:29 AM EDT documented as of this encounter Miscellaneous Notes * Telephone Encounter - Gris Mathis RN - 02/03/2025 11:38 AM EDT TC to pt to status check. Pt stated that he is feeling the same as when called over weekend. Pt stated that he was treated for a viral respiratory infection approximately 4 weeks ago and was given ABT to treat and has completed. Pt reporting still having productive cough but now is experiencing dark brown/black sputum. Pertinent negatives for fever, unintentional weight loss, night sweats, insomnia. Advised due to pt having now coloring in productive cough, offered sick on site appointment for . Pt verbalized understanding and agreement with plan. documented in this encounter Plan of Treatment Not on file documented as of this encounter Visit Diagnoses Not on filedocumented in this encounter Care Teams Field Cashier Relationship Specialty Start Date End Date Luis Pritchard CNP PCP - General Family Medicine 12/13/24 documented as of this encounter
--- OUTSIDE RECORDS SUMMARY | 2025-02-05 16:28 | XMS_ITS | Encounter Summary ---
Author Organization [employer] Address [address] [facility] 7t [place] [address] Care Team Providers Care Accounting Bookkeeper Name Role Phone Venus Panda MD Primary Care Provider [phone] Luis Pritchard CNP Primary Care Provider [phone] Encounter Details Date Type Department Care Team ([facility] Contact Info) Description 01/26/2024 Orders Only [facility] [address] [place], [place] [phone] Henrietta Carroll MD [address] [place] [address] Social History Tobacco Use Types Packs/Day Years [...] AM EDT documented as of this encounter Plan of Treatment Not on file documented as of this encounter Visit Diagnoses Not on filedocumented in this encounter Care Teams Accounting Bookkeeper Relationship Specialty Start Date End Date Venus Panda MD [address] [place] [phone] PCP - General Family Medicine 04/28/15 12/12/24 Luis Pritchard CNP [address] [place] [address] PCP - General Family Medicine 12/13/24 documented as of this encounter
--- OUTSIDE RECORDS SUMMARY | 2025-02-05 16:28 | XMS_ITS | Encounter Summary ---
Author Organization [employer] Address [address] [facility] 7t [place] [address] Care Team Providers Care Photoresist Contact Printer Name Role Phone Venus Panda MD Primary Care Provider [phone] Luis Pritchard CNP Primary Care Provider [phone] Reason for Visit * Reason Onset Date Comments Referral 09/25/2023 Encounter Details Date Type Department Care Team ([facility] st Contact Info) Description 09/25/2023 Telephone [facility] [address] [place] [address] Venus Panda MD [address] [place], [place] [phone] Referral Social History Tobacco Use Types Packs/Day Years [...] encounter Miscellaneous Notes * Telephone Encounter - Felipe Herrera - 09/25/2023 9:28 AM EDT Tc from pt requesting referral for [facility] center. Pt stated this was discussed during telephone visit with Dr. Holder in 09/21. If any questions please contact pt at [phone]. documented in this encounter Plan of Treatment Not on file documented as of this encounter Visit Diagnoses Not on filedocumented in this encounter Care Teams Photoresist Contact Printer Relationship Specialty Start Date End Date Venus Panda MD [address] [place] [address] PCP - General Family Medicine 04/28/15 12/12/24 Luis Pritchard CNP [address] [place] [address] PCP - General Family Medicine 12/13/24 documented as of this encounter
--- OUTSIDE RECORDS SUMMARY | 2025-02-05 16:28 | XMS_ITS | Encounter Summary ---
Author Organization [employer] Address [address] [facility] 7t [place] [address] Care Team Providers Care Retail Inventory Control Clerk Name Role Phone Venus Panda MD Primary Care Provider [phone] Luis Pritchard CNP Primary Care Provider [phone] Reason for Visit * Reason Onset Date Comments Nurse Triage 08/09/2023 Encounter Details Date Type Department Care Team ([facility] st Contact Info) Description 08/09/2023 Telephone [facility] MED[facility] [address] [place] [address] Venus Panda MD [address] [place], [place] [phone] Nurse Triage Social History Tobacco Use Types Packs/Day Years [...] encounter Miscellaneous Notes * Telephone Encounter - Eboni Mills RN - 08/09/2023 9:47 AM EDT Triage call Pt reports bad molar and was experiencing pain. Pt used listerine to try to reduce the pain and used to excess burning the inside of mouth . Pt reports white patches which are peeling under the tongue and on gums. Pt has dental apt tomorrow 08/10/23. Pt agrees with disposition and homecare advised. Protocol Used: Mouth Symptoms (Adult) Protocol-Based Disposition: Call Dentist When Office Open Positive Triage Question: * White patch in mouth or on tongue * All higher-acuity triage questions were negative Care Advice Discussed: * Drink Liquids If You Are Dehydrated * What Liquids Are Best to Drink? * Avoid * Telephone Encounter - Radha Welsh - 08/09/2023 9:20 AM EDT Symptom: Mouth Sores or Ulcers - Caller Reports Outcome: Schedule an appointment to be seen within 24 hours Reason: Caller denied all higher acuity questions The caller accepted this outcome documented in this encounter Plan of Treatment Not on file documented as of this encounter Visit Diagnoses Not on filedocumented in this encounter Care Teams Retail Inventory Control Clerk Relationship Specialty Start Date End Date Venus Panda MD [address] [place] [address] PCP - General Family Medicine 04/28/15 12/12/24 Luis Pritchard CNP [address] [place] [address] PCP - General Family Medicine 12/13/24 documented as of this encounter
--- OUTSIDE RECORDS SUMMARY | 2025-02-05 16:28 | XMS_ITS | Encounter Summary ---
Author Organization [employer] Address [address] [facility] 7t [place] [address] Care Team Providers Care Risk Assessment Consultant Name Role Phone Venus Panda MD Primary Care Provider [phone] Luis Pritchard CNP Primary Care Provider [phone] Reason for Visit * Reason Onset Date Comments Medication Question 01/25/2024 Encounter Details Date Type Department Care Team ([facility] st Contact Info) Description 01/25/2024 Telephone [facility] [address] [place], [place] [phone] Venus Panda MD [address] [place] [address] Medication Question Social History Tobacco Use Types Packs/Day Years Used Date Smoking Tobacco: Former Cigarettes 0.3 1 2022 Passive Smoke Exposure: Past Smokeless Tobacco: [...] encounter Miscellaneous Notes * Telephone Encounter - Wing Daniela RN - 01/26/2024 2:49 PM EDT Tc to pharmacy and spoke to Torrie who stated the med was ready to be picked up as the instructionswere clarified. Advised that it would cost $13 out of pocket. Called pt to relayed this and pt verbalized understanding and agreement with plan. * Telephone Encounter - Tatyana Ernst - 01/25/2024 10:52 AM EDT Tc from pt calling to inform if office can call the pharmacy . States they are not giving him his eye drops due to needing clarification. Pharmacy: [id number] documented in this encounter Plan of Treatment Not on file documented as of this encounter Visit Diagnoses Not on filedocumented in this encounter Care Teams Risk Assessment Consultant Relationship Specialty Start Date End Date Venus Panda MD [address] [place] [phone] PCP - General Family Medicine 04/28/15 12/12/24 Luis Pritchard CNP [address] [place] [address] PCP - General Family Medicine 12/13/24 documented as of this encounter
--- OUTSIDE RECORDS SUMMARY | 2025-02-05 16:28 | XMS_ITS | Encounter Summary ---
Author Organization [employer] Address [address] [facility] [address] [place] [address] Care Team Providers Care Bend Up Name Role Phone Venus Panda MD Primary Care Provider [phone] Luis Pritchard CNP Primary Care Provider [phone] Encounter Details Date Type Department Care Team ([facility] st Contact Info) Description 05/15/2023 Telephone [facility] [address] [place], [place] [id number] Charlie Walters DDS [address] [place] [address] Social History Tobacco Use Types Packs/Day Years Used Date Smoking Tobacco: Every Day Cigarettes 0.3 1 Started: 2021; Last attempted to quit: 2022 Smokeless Tobacco: Current Alcohol Use Standard Drinks/Week [...] encounter Miscellaneous Notes * Telephone Encounter - Jade Santizo - 05/15/2023 11:28 AM EST Patient no call no show apt with DR walters Patient is [facility] apt documented in this encounter Plan of Treatment Not on file documented as of this encounter Visit Diagnoses Not on filedocumented in this encounter Care Teams Bend Up Relationship Specialty Start Date End Date Venus Panda MD [address] [place] [address] PCP - General Family Medicine 04/28/15 12/12/24 Luis Pritchard CNP [address] [place] [address] PCP - General Family Medicine 12/13/24 documented as of this encounter
--- OUTSIDE RECORDS SUMMARY | 2025-02-05 16:29 | XMS_ITS | Clinical Summary ---
Author Organization [facility] it Address [address] [place] [address] Care Team Providers Care Solutions Specialist Name Role Phone Unavailable Primary Care Provider Unavailabl e Social History Tobacco Use Types Packs/Day Years Used Date Smoking Tobacco: Never Assessed Sex and Gender Information Value Date Recorded Sex Assigned at Not on file Legal Sex Male 6:15 PM EST Gender Identity Not on file Sexual Orientation Not on file Plan of Treatment Health Maintenance Due Date Last Done Comments DTaP,Tdap,and Td Vaccines (1 - Tdap) 2013 Hepatitis B Vaccines (1 of 3 - 19+ 3-dose series) 2013 HPV Vaccines (1 - 3-dose SCD M series) 2021 HIV Screening 04/09/2022 Hepatitis C Screening 04/09/2022 Social Influencers of Health Screening 04/09/2022 Depression Screening 05/08/2024 COVID-19 Vaccine (1 - 2023-2 5 season) 2025 Influenza Vaccine (#1) 2025 RSV Immunization Adult Patie nts (1 - 1-dose 75+ series) 2069 HIB Vaccines Aged Out No longer eligi ble based on patient's age to complete this topic Hepatitis A Vaccines Aged Out No long er eligible based on patient's age to complete this topic IPV Vaccines Aged Out No longer eligi ble based on patient's age to complete this topic MMR Vaccines Aged Out No longer eligi ble based on patient's age to complete this topic Meningococcal ACWY Vaccine Aged Out N o longer eligible based on patient's age to complete this topic Meningococcal B Vaccine Aged Out No l onger eligible based on patient's age to complete this topic Pneumococcal Vaccine: Pediat rics (0 to 5 Years) and At-Risk Patients (6 to 49 Years) Aged Out No longer eligible b ased on patient's age to complete this topic RSV Immunization Patients Un crescencio 20 months Aged Out No longer eligible b ased on patient's age to complete this topic Varicella Vaccines Aged Out No longer eligible based on patient's age to complete this topic
--- OUTSIDE RECORDS SUMMARY | 2025-02-05 16:29 | XMS_ITS | Encounter Summary ---
Author Organization [employer] Address [address] [facility] [address] [place] [address] Care Team Providers Care Hot Water Heater Installer Name Role Phone PritchardLuis RONY Primary Care Provider [phone] Encounter Details Date Type Department Care Team (Latest Contact Info) Description 02/05/2025 Travel Social History Tobacco Use Types Packs/Day Years [...] AM EDT documented as of this encounter Functional Status * Over the past 2 weeks, how often have you been bothered by any of the following problems? Question Answer Date of Assessment Author Patient Health Questionnaire -2 Score 0 02/05/2025 3:38 PM EDT Bridget Quintero MA * Little interest or pleasure in doing things Answer Date of Assessment Author Not at all 02/05/2025 3:38 PM EDT [employer] Jaqueline mcelroy [place] * Feeling down, depressed, or hopeless Answer Date of Assessment Author Not at all 02/05/2025 3:38 PM EDT [employer] Jaqueline mcelroy [place] * Trouble falling or staying asleep, or sleeping too much Answer Date of Assessment Author Not at all 02/05/2025 3:38 PM EDT [employer] Jaqueline mcelroy [place] * Feeling tired or having little energy Answer Date of Assessment Author Not at all 02/05/2025 3:38 PM EDT [employer] Jaqueline mcelroy [place] * Poor appetite or overeating Answer Date of Assessment Author Not at all 02/05/2025 3:38 PM EDT [employer] Jaqueline mcelroy [place] * Feeling bad about yourself - or that you are a failure or have let yourself or your family down Answer Date of Assessment Author Not at all 02/05/2025 3:38 PM EDT [employer] Jaqueline mcelroy [place] * Trouble concentrating on things, such as reading the newspaper or watching television Answer Date of Assessment Author Not at all 02/05/2025 3:38 PM EDT [employer] Jaqueline mcelroy [place] * Moving or speaking so slowly that other people could have noticed? Or the opposite - being so fidgety or restless that you have been moving around a lot more than usual. Answer Date of Assessment Author Not at all 02/05/2025 3:38 PM EDT Jaqueline Mark MA * Thoughts that you would be [...] Diagnoses Not on filedocumented in this encounter Additional Health Concerns Assessment Noted Time PHQ-9 Depression Total Score: 0 02/06/20 3:38 PM EDT documented as of this encounter Care Teams Hot Water Heater Installer Relationship Specialty Start Date End Date Luis Pritchard CNP PCP - General Family Medicine 12/13/24 documented as of this encounter
--- OUTSIDE RECORDS SUMMARY | 2025-02-05 16:29 | XMS_ITS | Encounter Summary ---
Author Organization [employer] Address [address] [facility] [address] [place] [address] Care Team Providers Care Tanyard Worker Name Role Phone Luis Pritchard CNP Primary Care Provider [phone] Reason for Visit * Reason Onset Date Comments chart prep 02/05/2025 Encounter Details Date Type Department Care Team ([facility] Contact Info) Description 02/05/2025 Telephone [facility] [address] [place], [place] [phone] Luis Pritchard CNP [address] [place], [place] [phone] chart prep Social History Tobacco Use Types Packs/Day Years [...] encounter Miscellaneous Notes * Telephone Encounter - Jaqueline Quintero MA - 02/05/2025 8:53 AM EDT Chart Prep Labs: not applicable Images: not applicable Referrals: not applicable Vaccines due: Covid, Flu, Hep B, and HPV Screenings: not applicable Overdue care gaps: SBIRT, SDOH, PHQ-9, FADI-7, and Disability screen documented in this encounter Plan of Treatment Not on file documented as of this encounter Visit Diagnoses Not on filedocumented in this encounter Additional Health Concerns Assessment Noted Time PHQ-9 Depression Total Score: 0 02/06/20 3:38 PM EDT documented as of this encounter Care Teams Tanyard Worker Relationship Specialty Start Date End Date Luis Pritchard CNP PCP - General Family Medicine 12/13/24 documented as of this encounter
[2025-02-05 18:12] LABS: MANUAL DIFF FLAG NO
[2025-02-05 18:16] LABS: Hematocrit 45.6 % (42.0-52.0); Hemoglobin 14.8 g/dl (14.0-18.0); Imm Gran Abs Auto 0.02 X10*3/uL (0.00-0.03); Imm Gran Pct Auto 0.2 % (0.0-0.4); Lymphocytes Absolute Auto 2.4 X10*3/uL (1.2-4.9); Mean Corpuscular HGB Conc 32.5 g/dl (31.0-36.0); Mean Corpuscular Hemoglobin 27.9 pg (27.0-33.0); Mean Corpuscular Volume 85.9 fL (80.0-98.0); NRBC Abs Auto 0.000 X10*3/uL (0.0-0.012); NRBC Pct Auto 0.0 /100WBC (0.0-0.2); Platelet Count 318 X10*3/uL (160-400); Red Blood Count 5.31 X10*6/uL (4.60-5.80); White Blood Count 8.5 X10*3/uL (4.8-10.8)
[2025-02-05 18:42] LABS: Anion Gap 11 (12-20); Blood Urea Nitrogen 11 mg/dL (9-16); Calcium 9.4 mg/dL (8.4-10.2); Carbon Dioxide 28 mmol/L (22-29); Chloride 105 mmol/L (96-108); Estimated Glomerular Filt Rate > 60; Potassium 3.5 mmol/L (3.3-5.1); Sodium 140 mmol/L (135-145)
== END 2025-02-05 15:50 | disposition home or self-care (01) ==
LOC: HO.CHCLDS 15:49
DX: B34.9 Viral infection, unspecified (principal)
CPT/HCPCS: 36415; 80048; 85025

== ENCOUNTER 2025-04-23 08:13 | Emergency (ER) | payer MEDICAID, SELFPAY ==
--- NOTE | ~2025-04-23 | XR_ITS ---
EXAMINATION: XR CHEST CLINICAL INFORMATION: SOB COMPARISON: None available. TECHNIQUE: 2 views of the chest were obtained. FINDINGS: Heart size is normal. No pulmonary edema. No focal consolidation. No effusion. No pneumothorax. No acute osseous findings XR/XR chest 2V IMPRESSION: No acute cardiopulmonary findings Electronically signed by: Dion Hancock MD 04/23/2025 09:12 AM [facility]
[2025-04-23 08:27] VITALS: BP 114/62; PULSE 73; RESP 18; TEMP 36.3; O2SAT 98; BMI 28.2
--- NOTE | 2025-04-23 08:34 | ED.ASTHMA ---
HPI - Asthma General Chief Complaint: Asthma Stated Complaint: asthma, no inhaler used Time Seen by Provider: 04/23/25 08:34 Source: patient Mode of arrival: ambulatory Limitations: no limitations History of Present Illness ED Provider: Suze Bai PA-C HPI Narrative: Patient is a 29 year old male with a history of asthma presenting to the emergency department today with cough. 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 Patient states that he has a nebulizer machine but no albuterol solution. Patient states that he feels otherwise fine. Patient denies any other complaints at this time. Related Data Previous Rx's ?Medication ?Instructions ?Recorded omeprazole 20 mg capsule,delayed 20 mg PO DAILY #30 caps 02/04/21 release ondansetron 4 mg disintegrating 4 mg PO Q6-8H PRN nausea and 02/04/21 tablet vomiting #20 tabs albuterol sulfate 1.25 mg/3 mL 1.25 mg (3 mL) inhalation Q4-6H 04/23/25 solution for nebulization PRN bronchospasm #90 mL prednisone 20 mg tablet 40 mg (2 x 20 mg) PO DAILY COPD 04/23/25 exacerbation 5 days #10 tabs Allergies Allergy/AdvReac Type Severity Reaction Status Date / Time lobster Allergy Anaphylaxis Verified 04/23/25 08:29 bee pollen (BEE STINGS) AdvReac Severe ANAPHYLAXIS Unverified 04/23/25 08:29 Review of Systems Constitutional: Constitutional: Reports as per HPI Eyes: Eyes: Reports as per HPI ENT: Reports as per HPI Cardiovascular: Cardiovascular: Reports as per HPI Respiratory: Respiratory: Reports as per HPI Gastrointestinal: Gastrointestinal: Reports as per HPI Genitourinary: Genitourinary: Reports as per HPI Musculoskeletal: Musculoskeletal: Reports as per HPI Integumentary/Breasts: Skin/Breast: Reports as per HPI Neurologic: Reports as per HPI Psychiatric: Psychiatric: Reports as per HPI Endocrine: Endocrine: Reports as per HPI Hematologic/Lymphatic: Hematologic/Lymphatic: Reports as per HPI Allergic/Immunologic: Allergic/Immunologic: Reports as per HPI PMF Past Medical History Attestation statement: The following information was validated with the patient. Source: old records reviewed and nursing notes reviewed Social History Social History Patient Tobacco Use Status: Current everyday Tobacco user Substance Use Type: Marijuana Advance Directives: No Advance Directives Information Provided: Yes Physical Exam Vital Signs: Vital Signs: Last Vital Signs Temp 97.3 F 04/23/25 10:20 Pulse 73 04/23/25 10:20 Resp 18 04/23/25 10:20 BP 114/62 04/23/25 10:20 Pulse Ox 98 04/23/25 10:20 O2 Del Method Room Air 04/23/25 10:20 BMI result Body Mass Index 28.2 Const: General: cooperative, no acute distress, alert and awake Nutritional Appearance: well nourished Orientation/consciousness: patient oriented x3 HEENT: Head: Yes normal to inspection and Yes atraumatic Ears: hearing grossly normal bilaterally and external ears normal General nose exam: Normal external nose present, no nasal discharge noted and no epistaxis Face and sinus: Yes normal facial exam, No abrasion and No laceration Mouth: Normal oral and palatal mucosa present, no drooling and no muffled voice Eyes: General: appearance normal, both eyes and all related structures Periorbital: periorbital findings normal Eyelids: Yes eyelids normal Conjunctivae: conjunctivae normal Pupils: Equal, round and reactive pupils present EOM: EOMs intact bilaterally Neck: Neck: Yes normal visual inspection and Yes full ROM Resp: Effort & Inspection: normal respiratory effort and able to speak in complete sentences Neuro: General: patient oriented x3, moves all extremities and CN's II-XI intact bilaterally Cranial nerves: Yes Equal, round and reactive pupils present Cognition (Neuro): normal cognition Extrem: General: Yes normal to inspection, Yes full ROM and Yes capillary refill normal Psych: Appearance: grossly normal Mental Status: mental status grossly normal Affect: normal affect Attitude: cooperative Thought process: Normal thought process present Thought content: Normal thought content present Insight: Good insight present (Psych) Medical Decision Making Medical Decision Making MDM Narrative: Patient is a 29 year old male with a history of asthma presenting to the emergency department today with cough. Patient's physical exam was as noted in the physical exam portion of this note. Patient's chest x-ray showed no acute process. Patient's COVID-19, influenza, RSV testing negative. Patient's clinical presentation is most consistent with an asthma exacerbation. I explained my physical exam findings as well as all test results to the patient. I answered all questions asked by the patient. I stressed the importance of the patient taking his medication as directed (either prescribed or as the over the counter packaging recommends). I stressed the importance of the patient following up with his primary care provider. I stressed the importance of the patient returning to the emergency department immediately if his symptoms were to worsen or if he were to develop any dizziness, shortness of breath, difficulty breathing, chest pain, blurry vision, loss of vision, nausea, vomiting, abdominal pain, fever, chills, back pain, or any other complaints. Patient verbalized agreement and understanding with this treatment plan and discharge. Differential Diagnosis Differential Diagnoses: The differential diagnosis associated with the presentation includes Asthma exacerbation Cough Admission/Observation Consideration of admission/observation: Escalation of care including admission/observation considered Patient would have been admitted to the hospital had his work up had any findings where hospital admission was appropriate and his clinical presentation warranted hospital admission. Lab Data [facility] Lab Attestation statement: I reviewed the patient's lab results. My interpretation of these results are in the [facility] Rationale portion of this note. Labs: Lab Results 04/23/25 Range/Units 08:34 Influenza Type A (PCR) NEGATIVE (Negative) Influenza Type B (PCR) NEGATIVE (Negative) RSV RNA Qual (PCR) NEGATIVE (Negative) SARS-CoV-2 RNA (RT-PCR) NEGATIVE (Negative) Independent Interpretation I performed an independent interpretation of an: Plain X-Ray Interpretation: My interpretation is in agreement with the radiologist's impression of this imaging study as written below. EXAMINATION: XR CHEST CLINICAL INFORMATION: SOB COMPARISON: None available. TECHNIQUE: 2 views of the chest were obtained. FINDINGS: Heart size is normal. No pulmonary edema. No focal consolidation. No effusion. No pneumothorax. No acute osseous findings XR/XR chest 2V IMPRESSION: No acute cardiopulmonary findings Electronically signed by: Dion Hancock MD 04/23/2025 09:12 AM [facility] Dictated By: Dion Hancock MD Signed By: Electronically signed by Dion Hancock MD 04/23/25 0912 Radiology Impression Discussion of test interpretation with radiology: I have reviewed the radiologist's reading. Discharge Plan Discharge Clinical Impression: Asthma with acute exacerbation Patient Disposition: Home, Self-Care Instructions: Asthma (DC) Additional Instructions: Your chest x-ray and COVID-19/Influenza/RSV testing were negative. La radiograf?a de t?rax y las pruebas de COVID-19/influenza/VSR dieron negativo. Take your medication as prescribed. [place] mendez medicaci?n seg?n lo prescrito. IF you are prescribed home medications and/or you are taking over the counter medications at home - it is very important you continue to do so as prescribed / directed unless told otherwise. SI le recetan medicamentos y/o est? tomando medicamentos de venta yaya, es muy importante que contin?e haci?ndolo seg?n lo recetado/indicado a menos que le indiquen lo contrario. Follow up with your primary care provider. Return to the emergency department immediately if your symptoms worsen or if you develop any dizziness, shortness of breath, difficulty breathing, chest pain, blurry vision, loss of vision, nausea, vomiting, abdominal pain, fever, chills, back pain, or any other complaints. Tex?seguimiento?con mendez m?dico de atenci?n primaria. Acuda inmediatamente al servicio de urgencias si aguila s?ntomas empeoran o si presenta falta de aliento, dificultad para respirar, dolor tor?cico, mareos, aturdimiento, dolor de espalda, dolor abdominal, fiebre, escalofr?os o cualquier otro s?ntoma. Please see the information below about our Patient Portal. If you are not yet enrolled in the [facility] Patient Portal, you will receive an enrollment email invitation following your visit to any [facility] care setting. You may also self-enroll in the Patient Portal by visiting our website: [email or web address] The following information is required to access the Patient Portal: - Your [facility] Medical Record Number - Your personal home email address (must match what is in your electronic medical record, Registration staff can assist with this) - Name - Date of Capabilities of the Patient Portal: - Message some providers - View upcoming appointments - Access your health summary, medical history, and visit history - View current conditions and allergies - View procedure and lab results - View your medications, including guidelines, side effects, and precautions - Complete pre-appointment questionnaires requested by your provider - Ready summary reports of your office visits and procedures To access the Patient Portal Mobile [employer]ger, follow these directions: - Search besomebody. in the [employer] Store or [employer] Store - Download the Bridger - Search for [facility] - Enter your login/password Portal del paciente Si usted no esta inscrito en el portal de pacientes de [facility], recibira selena invitacion de inscripcion despues de mendez visita al [facility] o al [facility] via correo electronico. Tambien puede inscribirse voluntariamente en el portal de pacientes visitando nuestra pagina web: [email or web address] La siguiente informacion sera requerida para acceder al portal: - Mendez jennifer de historia medica de [facility] - Mendez direccion de correo electronico personal - Nombre - Fecha de nacimiento Capacidades: Las siguientes capacidades estan disponibles en el portal de pacientes: - Enviar mensajes a algunos doctores - Verificar proximas citas - Acceso a mendez historial de gera, registro medico e historial de visitas - Renetta las condiciones actuales y alergias renetta procedimientos y resultados del laboratorio - Renetta aguila medicamentos, incluyendo las pautas - Efectos secundarios y precauciones - Completar o llenar formularios / cuestionarios de - Citas solicitadas por mendez doctor - Leer los resumenes de reportes medicos de aguila visitas y procedimientos Notrees acceder a la aplicacion movil: - Busque bes[employer]body. en la [employer]ger Store o [employer] Store - Descargue la aplicacion - Busque [facility] - Ingrese mendez nombre de usuario / Contrasena Prescriptions: New prednisone 20 mg tablet 40 mg PO DAILY 5 Days Qty: 10 0RF albuterol sulfate 1.25 mg/3 mL solution for nebulization 1.25 mg inhalation Q4-6H PRN (Reason: bronchospasm) Qty: 90 0RF No Action omeprazole 20 mg capsule,delayed release(DR/EC) 20 mg PO DAILY Qty: 30 0RF ondansetron 4 mg tablet,disintegrating 4 mg PO Q6-8H PRN (Reason: nausea and vomiting) Qty: 20 0RF Referrals: Venus Panda MD [Primary Care Provider, Internal Medicine] Stand Alone Forms: Work/School Release Interventions: ED Discharge Assessment Last Done: 04/23/25 10:20 Discharge Date/Time: 04/23/25 10:20 Print Language: [place]
--- OUTSIDE RECORDS SUMMARY | 2025-04-23 09:05 | XMS_ITS | Clinical Summary ---
Author Organization [employer] Address [address] [facility] 7t [place] [address] Care Team Providers Care Chief Mechanical Engineer Name Role Phone MachoDaingallitotrey RONY Primary Care Provider [phone] Allergies Active Allergy Reactions Criticality Noted Date Comments Shellfish Allergy Swelling 10/16/2018 Medications ProAir HFA 108 (90 Base) MCG/ACT inhaler INHALE 2 PUFFS BY MOUTH FOUR TIMES DAILY NEEDED FOR SHORTNESS OF BREATH 2 Active omeprazole (PriLOSEC) [address] capsule TAKE 1 CAPSULE BY MOUTH TWICE DAILY BEFORE MEALS 2 Active cyclobenzaprine (Flexeril) 5 MG tabletIndicatio ns:Costochondri tis, acute Take 1 tablet (5 mg) by mouth in the morning. 30 tablet 3 Active permethrin (Elimite) 5 % cream apply to skin from hairline to toes and wash off 8-10 hours later 200 g 3 Active triamcinolone (Kenalog) 0.5 % ointment Apply topically 2 times daily. 60 g 3 Active cetirizine (ZyrTEC) 10 MG tablet Take 1 tablet (10 mg) by mouth in the morning for 14 days. 14 tablet 3 Active doxepin (SINEquan) 10 MG capsule Take 1 capsule (10 mg) by mouth at bedtime. 14 capsule 3 Active hydrocortisone 2.5 % ointmentIndicat ions:Balanitis Apply topically 2 times daily. 60 g 1 3 Active clotrimazole (Lotrimin) 1 % cream Apply topically 2 times daily. 30 g 5 Active azithromycin (Zithromax) 250 MG tablet TAKE DIRECTED PER PACKAGE DIRECTION FOR 5 DAYS 5 Active benzonatate (Tessalon) 100 MG capsule TAKE 1 CAPSULE BY MOUTH THREE TIMES DAILY FOR 7 DAYS NEEDED FOR COUGH 5 Active fluticasone (Flonase) 50 MCG/ACT nasal spray USE 1 SPARY INTO EACH NOSTRIL DAILY FOR 90 DAYS 5 Active predniSONE (Deltasone) 20 MG tablet Take 1 tablet by mouth Once per day. 5 Active acetaminophen (Tylenol) 325 MG tablet Take 650 mg by mouth. 2 Active ketoconazole (NIZOral) 2 % shampoo Apply topically 2 (two) times a week. 120 mL 2 5 Active Active Problems Problem Noted Date Diagnosed Date Seborrheic dermatitis of scalp 03/26/2025 Milia of eyelid of left eye 03/26/2025 Balanitis 01/16/2023 Assessment & Plan (01/08/2024 11:55 [...] Encounters Date Type Department Care Team Description 03/26/2025 2:40 PM EST Office Visit [facility] [address] [place] [address] Ashley Nelson MD Seborrheic dermatitis of scalp (Primary Dx); Milia of eyelid of left eye 03/26/2025 Travel 03/25/2025 Telephone [facility] [address] [place] [address] Luis Pritchard CNP Nurse Triage 02/07/2025 Telephone [facility] [address] [place] [address] Luis Pritchard CNP Nurse Triage 02/05/2025 3:30 PM EDT Office Visit [facility] [address] [place], [place] [phone] Luis Pritchard CNP Viral illness (Primary Dx) 02/05/2025 Travel 02/05/2025 Telephone [facility] [address] [place], [place] [phone] Luis Pritchard CNP chart prep 02/03/2025 Telephone [facility] [address] [place] [address] Luis Pritchard CNP NTTS Follow up from Last 3 Months Immunizations Immunization Administration [...] Sign Reading Time Taken Comments Blood Pressure 126/80 03/26/2025 2:45 PM EST Pulse 78 03/26/2025 2:45 PM EST Temperature 36.3 C (97.4 F) 03/26/2025 2:45 PM EST Respiratory Rate 20 03/26/2025 2:45 PM EST Oxygen Saturation 98% 03/26/2025 2:45 PM EST Inhaled Oxygen Concentration - - Weight 92.8 kg (204 lb 9.6 oz) 03/26/2025 2:45 P M EST Height 179 cm (5' 10.47 ) 03/26/2025 2:45 PM EST Body Mass Index 28.97 03/26/2025 2:45 PM EST Plan of Treatment Health Maintenance Due Date Last Done Comments Dental Oral Exam 1994 Dental Prophylaxis 1994 Lipid Panel 1994 Family Planning (PISQ) 2009 HPV Vaccines (1 - Male 3-dos e series) 2009 Hepatitis B Vaccines (1 of 3 - 19+ 3-dose series) 2013 Dental X-Ray: Bitewings 04/18/2024 04/17/2023 Dental X-Ray: Full Mouth 08/06/2024 08/05/2021 COVID-19 Vaccine (2 - 2024-2 6 season) 2025 01/04/2021 Influenza Vaccine (#1) 2025 Alcohol/Substance Use Screening 02/05/2026 02/05/2025 Depression Screening 02/05/2026 02/05/2025, 02/05/2025 Disability Screening 02/05/2026 02/05/2025 SDOH Screening 02/05/2026 02/05/2025 Tobacco Screening 03/26/2026 03/26/2025 DTaP/Tdap/Td Vaccines (2 - T d or [...] Procedure Name Priority Date/Time Associated Diagnosis Comments CBC WITH AUTO DIFFERENTIAL Routine 02/05/2025 3:51 PM EDT Viral illness BASIC METABOLIC PANEL Routine 02/05/2025 3:51 PM EDT Viral illness POCT RAPID COVID ANTIGEN Routine 02/05/2025 3:50 PM EDT Viral illness POCT INFLUENZA B (ID NOW RAPID MOLECULAR) Routine 02/05/2025 3:50 PM EDT Viral illness POCT INFLUENZA A (ID NOW RAPID MOLECULAR) Routine 02/05/2025 3:49 PM EDT Viral illness BITEWING - SINGLE RADIOGRAPHIC IMAGE Routine 04/17/2023 1:00 PM EST [facility] HISTORICAL HEPATITIS C AB W/REFL TO HCV RNA, QN, PCR Routine 08/31/2021 10:57 AM EDT HIV 1/2 ANTIGEN/ANTIBODY, FOURTH GENERATION W/RFL Routine 08/31/2021 10:57 AM EDT from Last 3 Months or Most Recently Relevant to Health Maintenance Results * CBC auto differential (02/05/2025 3:51 PM EDT) White Blood Count 8.5 4.8 - 10.8 X10*3/uL [facility] Red Blood Count 5.31 4.60 - 5.80 X10*6/uL [facility] Hemoglobin 14.8 14.0 - 18.0 g/dl [facility] Hematocrit 45.6 42.0 - 52.0 % [facility] Mean Corpuscular Volume 85.9 80.0 - 98.0 fL [facility] Mean Corpuscular Hemoglobin 27.9 27.0 - 33.0 pg [facility] Mean Corpuscular HGB Conc 32.5 31.0 - 36.0 g/dl [facility] Red Cell Distribution Width 13.0 11.0 - 16.0 % [facility] Platelet Count 318 160 - 400 X10*3/uL [facility] Mean Platelet Volume 10.4 9.4 - 12.4 fL [facility] Neutrophils Percent Auto 61.8 45 - 73 % [facility] Imm Gran Pct Auto 0.2 0.0 - 0.4 % [facility] Lymphocytes Percent Auto 27.7 20 - 40 % [facility] Monocytes Percent Auto 6.3 2 - 11 % [facility] Eosinophils Percent Auto 3.6 0 - 4 % [facility] Basophils Percent Auto 0.4 0 - 2 % [facility] NRBC Pct Auto 0.0 0.0 - 0.2 /100WBC [facility] Neutrophils Absolute Auto 5.3 2.0 - 8.3 x10*3/uL [facility] Imm Gran Abs Auto 0.02 0.00 - 0.03 X10*3/uL [facility] Lymphocytes Absolute Auto 2.4 1.2 - 4.9 X10*3/uL [facility] Monocytes Absolute Auto 0.5 0.1 - 1.2 X10*3/uL [facility] Eosinophils Absolute Auto 0.3 0.0 - 0.4 X10*3/uL [facility] Basophils Absolute Auto 0.0 0.0 - 0.2 X10*3/uL [facility] NRBC Abs Auto 0.000 0.0 - 0.012 X10*3/uL [facility] Blood Venous blood specimen / Unknown 02/05/2025 3:51 PM EDT 02/05/2025 6:09 PM EDT Luis [facility] LAB BLOOD ORDERABLES Jenn l Result [facility] [address] [place] [address] [phone] * (ABNORMAL) Basic Metabolic Panel (02/05/2025 3:51 PM EDT) Sodium 140 135 - 145 mmol/L [facility] Potassium 3.5 3.3 - 5.1 mmol/L [facility] Chloride 105 96 - 108 mmol/L [facility] Carbon Dioxide 28 22 - 29 mmol/L [facility] Anion Gap 11(L) 12 - 20 [facility] Urea Nitrogen (BUN) 11 9 - 16 mg/dL [facility] Creatinine, Serum 0.77 0.5 - 1.4 mg/dL [facility] Estimated Glomerular Filt Rate >60 [facility] Comment:Chronic Kidney Disea se: Estimated GFR < 60 mL/min/1.38w2Ukesgn Kidney Disease: Estimated GFR < 15 mL/min/1.73m2 Glucose 93 60 - 115 mg/dL [facility] Calcium 9.4 8.4 - 10.2 mg/dL [facility] Blood Venous blood specimen / Unknown 02/05/2025 3:51 PM EDT 02/05/2025 6:09 PM EDT Result [facility] LAB BLOOD ORDERABLES Jenn l Result Performing Organization Address [facility]/ZIP Co de Phone Number [facility] [address] [place] [phone] * Influenza B (ID NOW Rapid Molecular) (02/05/2025 3:50 PM EDT) Influenza B Negative Negative, Indeterminate [facility] QC Media Lot # [facility] Comment:[id number] Lot# Expiration Date [facility] Comment:06/07/2026 Swab 02/05/2025 3:50 PM EDT Result [facility] POINT OF CARE TEST ENTER/ EDIT ORDERABLES Final Result Performing Organization Address [facility]/ZIP Co de Phone Number [facility] [address] [place] [phone] * POCT Rapid COVID Ag (02/05/2025 3:50 PM EDT) Rapid COVID Ag Negative QC Media Lot # Comment:[id number] Lot# Expiration Date Comment:11/29/2025 Swab 02/05/2025 3:50 PM EDT Result [facility] POINT OF CARE TEST ENTER/ EDIT ORDERABLES Final Result * Influenza A (ID NOW Rapid Molecular) (02/05/2025 3:49 PM EDT) Influenza A Negative Negative, Indeterminate [facility] QC Media Lot # [facility] Comment:[id number] Lot# Expiration Date [facility] Comment:06/07/2026 Swab 02/05/2025 3:49 PM EDT Daintrey [facility] POINT OF CARE TEST ENTER/ EDIT ORDERABLES Final Result Performing Organization Address City/[facility]/ZIP Co de Phone Number [facility] [address] [place] [address] [phone] * HEPATITIS C AB W/REFL TO HCV RNA, QN, PCR (08/31/2021 10:57 AM EDT) Pathologist [facility] HEPATITIS C ANTIBODY NON-REACT [place]STA NON-REACT MODESTA [facility] INDEX 0.01 <1.00 [facility] Comment: HCV antibody was non-reactive. There is no laboratory evidence of HCV infection. In most cases, no further action is required. However, if recent HCV exposure is suspected, a test for HCV RNA (test code 66552) is suggested. For additional information please refer to http://education.[employer]/faq/YNI19j2 (This link is being provided for informational/ educational purposes only.) 08/31/2021 10:5 7 AM EDT Daniel Akhtar MD HISTORICAL/NON ORDERABLE LABS Fi nal Result [facility] [address] * HIV 1/2 ANTIGEN/ANTIBODY,FOURTH GENERATION W/RFL (08/31/2021 10:57 AM EDT) Pathologist [facility] HIV-1/2 ANTIGEN AND ANTIBODIES, 4TH GENERATION W/ REFLEX NON-REACT [facility] NON-REACT [facility] Comment: HIV-1 antigen and HIV-1/HIV-2 [...] purpose. For additional information please refer to http://education.[employer].LendingStar/faq/MOA385 (This link is being provided for informational/ educational purposes only.) The performance of this assay has not been clinically validated in patients less than 2 years old. 08/31/2021 10:5 7 AM EDT us Daniel Akhtar MD LAB BLOOD ORDERABLES Final Resul t [facility] [address] from Last 3 Months or Most Recently Relevant to Health Maintenance Insurance C3 [facility] MEDICAID STAND ADULT Care Teams Chief Mechanical Engineer Relationship Specialty Start Date End Date Luis Pritchard CNP PCP - General Family Medicine 12/13/24
--- OUTSIDE RECORDS SUMMARY | 2025-04-23 09:05 | XMS_ITS | Clinical Summary ---
Author Organization [facility] Address [address] [address] Phone Care Team Providers Care Real Estate Appraiser Name Role Phone Unknown, Unknown Primary Care Provider iRta kaye Allergies Active Allergy Reactions Criticality Noted Date Comments Shellfish Containing Products Swelling 2018 Medications ferrous sulfate 324 mg (65 mg [place] iron) TbEC Take 1 tablet (324 mg [...] (10/08/2018 8:45 AM EDT) HCV Negative Negative [facility] Comment: This is a screening test and should be confirmed with molecular testing Blood 10/08/2018 8:45 AM EDT 10/08/2018 8:49 AM EDT us Don Bishop MD LAB BLOOD BKR ORDERABLES Final Result [facility] [address] [place] [address] from Last 3 Months or Most Recently Relevant to Health Maintenance Insurance C3 ACO C3 ACO C3 ACO C3 ACO C3 ACO C3 ACO C3 ACO C3 ACO Care Teams Real Estate Appraiser Relationship Specialty Start Date End Date Unknown, Unknown, PCP - General 10/08/18 Additional Source Comments The information contained in this document represents components of the legal health record. It is not the complete legal health record.[facility]
--- OUTSIDE RECORDS SUMMARY | 2025-04-23 09:05 | XMS_ITS | Encounter Summary ---
Author Organization [employer] Address [address] [facility] 7t [place] [address] Care Team Providers Care Supervisor Solder Making Name Role Phone Venus Panda MD Primary Care Provider [phone] Luis Pritchard CNP Primary Care Provider [phone] Reason for Visit * Reason Onset Date Comments Medication Question 01/25/2024 Encounter Details Date Type Department Care Team ([facility] st Contact Info) Description 01/25/2024 Telephone [facility] [address] [place], [place] [phone] Venus Panda MD [address] [place] [address] Medication Question Social History Tobacco Use Types [...] eye drops due to needing clarification. Pharmacy: [id number] documented in this encounter Plan of Treatment Not on file documented as of this encounter Visit Diagnoses Not on filedocumented in this encounter Care Teams Supervisor Solder Making Relationship Specialty Start Date End Date Venus Panda MD [address] [place] [phone] PCP - General Family Medicine 04/28/15 12/12/24 Luis Pritchard CNP [address] [place] [address] PCP - General Family Medicine 12/13/24 documented as of this encounter
--- OUTSIDE RECORDS SUMMARY | 2025-04-23 09:05 | XMS_ITS | Encounter Summary ---
Author Organization [employer] Address [address] [facility] 7t [place] [address] Care Team Providers Care Cocoa Butter Filter Operator Name Role Phone Venus Panda MD Primary Care Provider Luis Pritchard CNP Primary Care Provider [phone] Encounter Details Date Type Department Care Team ([facility] st Contact Info) Description 05/15/2023 Telephone [facility] [address] [place], [place] [phone] Charlie Walters DDS [address] [place] [address] Social History Tobacco Use Types Packs/Day Years [...] with DR walters Patient is calling to [facility] apt documented in this encounter Plan of Treatment Not on file documented as of this encounter Visit Diagnoses Not on filedocumented in this encounter Care Teams Cocoa Butter Filter Operator Relationship Specialty Start Date End Date Venus Panda MD [address] [place] [address] PCP - General Family Medicine 04/28/15 12/12/24 Luis Pritchard CNP [address] [place] [address] PCP - General Family Medicine 12/13/24 documented as of this encounter
--- OUTSIDE RECORDS SUMMARY | 2025-04-23 09:05 | XMS_ITS | Clinical Summary ---
Author Organization [facility] Address [address] [place] [address] Care Team Providers Care Risk Officer Name Role Phone Unavailable Primary Care Provider [...] Depression Screening 05/08/2024 COVID-19 Vaccine (1 - 2024-2 6 season) 2025 Influenza Vaccine (#1) 2025 RSV [...]
--- OUTSIDE RECORDS SUMMARY | 2025-04-23 09:05 | XMS_ITS | Encounter Summary ---
Author Organization [employer] Address [address] [facility] [address] [place] [address] Care Team Providers Care Jtac Name Role Phone Venus Panda MD Primary Care Provider [phone] Luis Pritchard CNP Primary Care Provider [phone] Reason for Visit * Reason Onset Date Comments Referral 09/25/2023 Encounter Details Date Type Department Care Team ([facility] st Contact Info) Description 09/25/[address] [facility] [address] [place] [address] Venus Panda MD [address] [place], [place] [phone] Referral Social History Tobacco Use Types Packs/Day Years Used Date Smoking Tobacco: Former Cigarettes 0.3 1 2 - 2022 Passive Smoke Exposure: Past Smokeless [...] If any questions please contact pt at [phone]. documented in this encounter Plan of Treatment Not on file documented as of this encounter Visit Diagnoses Not on filedocumented in this encounter Care Teams Jtac Relationship Specialty Start Date End Date Venus Panda MD [address] [place] [address] PCP - General Family Medicine 04/28/15 12/12/24 Luis Pritchard CNP [address] [place] [address] PCP - General Family Medicine 12/13/24 documented as of this encounter
--- OUTSIDE RECORDS SUMMARY | 2025-04-23 09:05 | XMS_ITS | Encounter Summary ---
Author Organization [employer] Address [address] [facility] 7t [place] [address] Care Team Providers Care External Auditor Name Role Phone Venus Panda MD Primary Care Provider [phone] Luis Pritchard CNP Primary Care Provider [phone] Reason for Visit * Reason Onset Date Comments Nurse Triage 08/09/2023 Encounter Details Date Type Department Care Team ([facility] st Contact Info) Description 08/09/2023 Telephone [facility] [address] [place] [address] Venus Panda MD [address] [place], [place] [phone] Nurse Triage Social History Tobacco Use Types [...] on filedocumented in this encounter Care Teams External Auditor Relationship Specialty Start Date End Date Venus Panda MD [address] [place] [address] PCP - General Family Medicine 04/28/15 12/12/24 Luis Pritchard CNP [address] [place] [address] PCP - General Family Medicine 12/13/24 documented as of this encounter
--- OUTSIDE RECORDS SUMMARY | 2025-04-23 09:05 | XMS_ITS | Encounter Summary ---
Author Organization [employer] Address [address] [facility] 7t [place] [address] Care Team Providers Care Oenologist Name Role Phone Venus Panda MD Primary Care Provider [phone] Luis Pritchard CNP Primary Care Provider [phone] Encounter Details Date Type Department Care Team ([facility] Contact Info) Description 01/26/2024 Orders Only [facility]S [address] [place], [place] [phone] Henrietta Carroll MD [address] [place] [address] Social History Tobacco Use Types Packs/Day Years [...] on filedocumented in this encounter Care Teams Oenologist Relationship Specialty Start Date End Date Venus Panda MD [address] [place] [phone] PCP - General Family Medicine 04/28/15 12/12/24 Luis Pritchard CNP [address] [place] [address] PCP - General Family Medicine 12/13/24 documented as of this encounter
[2025-04-23 09:20] LABS: Resp Syncy Virus RNA Qual PCR NEGATIVE (Negative); SARS COV2 PCR INHOUSE NEGATIVE (Negative)
[2025-04-23 10:20] VITALS: BP 114/62; PULSE 73; RESP 18; TEMP 36.3; O2SAT 98
== END 2025-04-23 10:20 | disposition home or self-care (01) ==
PROVIDERS: Emergency Provider Emergency Medicine Emergency Medical Services; PCP Student in an Organized Health Care Education/Training Program
DX: J45.901 Unspecified asthma with (acute) exacerbation (principal); R06.02 Shortness of breath; Z03.818 Encounter for observation for suspected exposure to other biological agents ruled out; Z79.899 Other long term (current) drug therapy
CPT/HCPCS: 71046; 87637; 99282; 99283

== ENCOUNTER → 2025-04-23 08:34 | Outpatient (BNV) | payer MEDICAID, SELFPAY | PROVIDERS: Emergency Provider Emergency Medicine Emergency Medical Services; PCP Student in an Organized Health Care Education/Training Program; Visit Provider Radiology Diagnostic Ultrasound | DX: R06.02 Shortness of breath (principal) | CPT/HCPCS: 71046 ==

== ENCOUNTER 2025-04-28 11:56 | Outpatient (REF) | payer MEDICAID, SELFPAY ==
--- OUTSIDE RECORDS SUMMARY | 2025-04-28 11:00 | XMS_ITS | Encounter Summary ---
Author Organization [email or web address] Address [address] [facility] 7t [place] [address] Care Team Providers Care Education Assistant Name Role Phone Macho Daingallitotrey RONY Primary Care Provider [phone] Reason for Visit * Reason Comments SICK VISIT HDF Encounter Details Date Type Department Care Team ([facility] st Contact Info) Description 04/28/2025 11:00 AM EST Office Visit [facility] [address] [place], [place] [phone] Heather Araujo FNP [address] [place] [address] Swollen neck (Primary Dx) Social History Tobacco Use Types [...] Sign Reading Time Taken Comments Blood Pressure 128/82 04/28/2025 11:06 AM EST Pulse 76 04/28/2025 11:06 AM EST Temperature 36.6 C (97.8 F) 04/28/2025 11:06 AM EST Respiratory Rate 22 04/28/2025 11:06 AM EST Oxygen Saturation - - Inhaled Oxygen Concentration - - Weight 92.7 kg (204 lb 6.4 oz) 04/28/2025 11:06 AM EST Height 180.3 cm (5' 11 ) 04/28/2025 11:06 AM EST Body Mass Index 28.51 04/28/2025 11:06 AM EST documented in this encounter Plan of Treatment Scheduled Orders Name Type Priority Associated Diagnoses Orde r Schedule TSH W/Reflex to FT4 Lab Routine Swollen neck Expected: 04/28/2025 (Approximate), Expires: 04/28/2026 documented as of this encounter Visit Diagnoses Diagnosis Swollen neck- Primary Swelling, mass, or lump in head and neck documented in this encounter Additional Health Concerns Assessment Noted Time PHQ-9 Depression Total Score: 0 02/06/20 25 3:38 PM EDT documented as of this encounter Care Teams Education Assistant Relationship Specialty Start Date End Date Luis Pritchard CNP PCP - General Family Medicine 12/13/24 documented as of this encounter
--- OUTSIDE RECORDS SUMMARY | 2025-04-28 15:15 | XMS_ITS | Encounter Summary ---
Author Organization [employer] Address [address] [facility] 7t [place] [address] Care Team Providers Care Sourcing Internship Name Role Phone MachoLuis RONY Primary Care Provider [phone] Encounter Details Date Type Department Care Team ([facility] Contact Info) Description 04/23/2025 Orders Only [facility] External Provider, [facility] Social History Tobacco Use Types Packs/Day Years [...] on file documented as of this encounter Procedures Procedure Name Priority Date/Time Associated Diagnosis Comments XR CHEST 2 VIEWS Routine 04/23/2025 9:03 AM EST SARS COV2/INFLUENZA A/B AND RSV RNA QL NAAT Routine 04/23/2025 8:34 AM EST documented in this encounter Results * XR Chest 2 Views (04/23/2025 9:03 AM EST) Anatomical Region Laterality Modality Chest Radiographic Yaritza ging 04/23/2025 9:03 AM EST Narrative 04/23/2025 9:15 AM EST [place] [address] XRay Report Signed Patient: Neo Roque MR#: [id number] : 1995 Acct:[id number] Age/Sex: 29 / M ADM Date: 04/23/25 Loc: .ED Attending Dr: Ordering Physician: Suze Bai Date of Service: 04/23/25 Procedure(s): XR chest 2V Accession Number(s): [id number] cc: Suze Bai; Venus Panda MD Reason for Exam: SOB EXAMINATION: XR CHEST CLINICAL INFORMATION: SOB COMPARISON: None available. TECHNIQUE: 2 views of the chest were obtained. FINDINGS: Heart size is normal. No pulmonary edema. No focal consolidation. No effusion. No pneumothorax. No acute osseous findings XR/XR chest 2V IMPRESSION: No acute cardiopulmonary findings Electronically signed by: Dion Hancock MD 04/23/2025 09:12 AM EST RP Dictated By: Dion Hancock MD Signed By: <Electronically signed by Dion Hancock MD in OV> 04/23/25911 DD/ 2 TD/TT: 04/23/25903 Sales Effectiveness Manager: KATHERINE Procedure Note Donotuseinterpreter, Image - 04/23/2025 [place] [address] XRay Report Signed Patient: Nick Roque#: [id number] : 1995Acct:[id number] Age/Sex: 29 / MADM Date: 04/23/25 Loc: .ED Attending Dr: Ordering Physician: Suze Bai Date of Service: 04/23/25 Procedure(s): XR chest 2V Accession Number(s): [id number] cc: Suze Bai; Venus Panda MD Reason for Exam: SOB EXAMINATION: XR CHEST CLINICAL INFORMATION: SOB COMPARISON: None available. TECHNIQUE: 2 views of the chest were obtained. FINDINGS: Heart size is normal. No pulmonary edema. No focal consolidation. No effusion. No pneumothorax. No acute osseous findings XR/XR chest 2V IMPRESSION: No acute cardiopulmonary findings Electronically signed by: Dion Hancock MD 04/23/2025 09:12 AM EST RP Dictated By: Dion Hancock MD Signed By: <Electronically signed by Dion Hancock MD in OV> 04/23/25911 DD/ 2 TD/TT: 04/23/25903 Sales Effectiveness Manager: KATHERINE [facility] External Provider IMG XR PROCEDURES Final Result * SARS-CoV-2 RNA, Influenza A/B, and RSV RNA, Ql NAAT (04/23/2025 8:34 AM EST) Influenza A PCR NEGATIVE Negative [facility] Influenza B PCR NEGATIVE Negative [facility] Resp Syncy Virus RNA Qual PCR NEGATIVE Negative [facility] SARS COV2 PCR NEGATIVE Negative [facility] Comment:All test results mus t be correlated with clinical findings.Negative results do not preclude SARS-CoV2, influenza Avirus, influenza B virus and/or RSV infectionand should not be used as the sole basis for treatment orother patient management decisions. Negative results must becombined with clinical observations, patient history, andepidemiological information.This test has not been evaluated for monitoring treatment ofinfection.This test has been authorized by the FDA under an EmergencyUse Authorization (EUA) for use by authorized laboratories.Testing performed on the [employer] inTouch GeneXpert utilizingreal-time RT-PCR.All SARS CoV2 and positive influenza A/B results arereported to [facility]. 04/23/2025 8:34 AM EST 04/23/2025 8:41 AM EST us Generic External Data Provider LAB MICROBIOLOGY - GENERAL ORDERABLES Final Result [facility] [address] [place] [address] [phone] documented in this encounter Visit Diagnoses Not on filedocumented in this encounter Additional Health Concerns Assessment Noted Time PHQ-9 Depression Total Score: 0 02/06/20 3:38 PM EDT documented as of this encounter Care Teams Sourcing Internship Relationship Specialty Start Date End Date Luis Pritchard CNP PCP - General Family Medicine 12/13/24 documented as of this encounter
--- OUTSIDE RECORDS SUMMARY | 2025-04-28 15:15 | XMS_ITS | Encounter Summary ---
Author Organization [employer] Address [address] [facility] 7t [place] [address] Care Team Providers Care Engineering Documentation Specialist Name Role Phone Venus Panda MD Primary Care Provider Luis Pritchard CNP Primary Care Provider [phone] Reason for Visit * Reason Onset Date Comments Medication Question 01/25/2024 Encounter Details Date Type Department Care Team ([facility] st Contact Info) Description 01/25/[address] [facility] CHC MED & PEDS [address], [place] [phone] Venus Panda MD [address] [place] [address] Medication Question Social History Tobacco Use Types [...] eye drops due to needing clarification. Pharmacy: [id number] documented in this encounter Plan of Treatment Not on file documented as of this encounter Visit Diagnoses Not on filedocumented in this encounter Care Teams Engineering Documentation Specialist Relationship Specialty Start Date End Date Vneus Panda MD [address] [place] [address] PCP - General Family Medicine 04/28/15 12/12/24 Luis Pritchard CNP [address] [place] [address] PCP - General Family Medicine 12/13/24 documented as of this encounter
--- OUTSIDE RECORDS SUMMARY | 2025-04-28 15:15 | XMS_ITS | Encounter Summary ---
Author Organization [employer] Address [address] [facility] [address] [place] [address] Care Team Providers Care Computer Systems Software Engineer Name Role Phone Venus Panda MD Primary Care Provider [phone] Luis Pritchard CNP Primary Care Provider [phone] Encounter Details Date Type Department Care Team ([facility] st Contact Info) Description 05/15/2023 Telephone [facility] CHC ADULT DENTAL [address] [place], [place] [phone] Charlie Walters DDS [address] [place] [address] Social History Tobacco Use Types Packs/Day Years [...] with DR walters Patient is calling to rust apt documented in this encounter Plan of Treatment Not on file documented as of this encounter Visit Diagnoses Not on filedocumented in this encounter Care Teams Computer Systems Software Engineer Relationship Specialty Start Date End Date Venus Panda MD [address] [place] [address] PCP - General Family Medicine 04/28/15 12/12/24 Luis Pritchard CNP [address] [place] [address] PCP - General Family Medicine 12/13/24 documented as of this encounter
--- OUTSIDE RECORDS SUMMARY | 2025-04-28 15:15 | XMS_ITS | Encounter Summary ---
Author Organization [employer] Address [address] [facility] 7t [place] [address] Care Team Providers Care Pharmaceutical Scientist Name Role Phone Luis Pritchard CNP Primary Care Provider [phone] Reason for Visit * Reason Onset Date Comments Nurse Triage 04/24/2025 Encounter Details Date Type Department Care Team ([facility] st Contact Info) Description 04/24/2025 Telephone [facility] MEDICINE [address] [place], [place] [phone] Luis Pritchard CNP [address] [place] [address] Nurse Triage Social History Tobacco Use Types Packs/Day Years Used Date Smoking Tobacco: Former Cigarettes 0.3 1 022 - 2022 Passive Smoke Exposure: Past [...] encounter Miscellaneous Notes * Telephone Encounter - Doris Andersen RN - 04/24/2025 12:27 PM EST Telephone call to pt who went to [facility] ED yesterday 04/23/25 for acute asthma exacerbation, cough. Hewas prescribed 5 days of prednisone and a nebulizer. Today pt confirms using nebulizer and taking prednisone, he wanted to clarify if he can take 2, 20mg pills at once or 1 in AM or 1 in PM. Advised him okay to take 40mg at once as prescribed. Pt states he still has cough. Educated him that he was just seen yesterday for this, and the medications will help relieve sxs including cough but will take time. Reviewed red flags: nonstop cough, SOB not relieved with medications or nebulizer. Reviewed to avoid any irritants including smoking products. Per pt request, scheduled ED follow up next week.Pt verbalized understanding, in agreement with plan. Future Appointments Date Time Provider Department Center 04/28/2025 11:00 AM TORIE Goode MEDICINE [facility] Protocol Used: Asthma Attack (Adult) Protocol-Based Disposition: Home Care Positive Triage Question: * Mild asthma attack (e.g., no SOB at rest, mild SOB with walking, speaks normally in sentences, mild wheezing) * All higher-acuity triage questions were negative. Care Advice Discussed: * Asthma Attack - Symptoms * Asthma Attack - Treatment - Quick-Relief Medicine * Drink Plenty of Liquids and Use a Humidifier * Avoid Asthma Triggers * Reasons To Call Back - An asthma attack is not better after 2 or 3 quick-relief treatments (such as albuterol by inhaleror nebulizer) 20 minutes apart. - Quick-relief asthma medicine (such as albuterol by inhaler or nebulizer) is needed more often than every 4 hours - Mild asthma symptoms not better after 24 hours - Mild wheezing or other asthma symptoms come and go for more than 3 days - You become worse * Telephone Encounter - Shen López - 04/24/2025 10:42 AM EST Patient calling to report ED visit on : Date: 04/23 Hospital: [facility] Seen for: Asthma Symptomatic Yes *if yes message should go to Triage Patient advised will forward to team nurse for follow up documented in this encounter Plan of Treatment Not on file documented as of this encounter Visit Diagnoses Not on filedocumented in this encounter Additional Health Concerns Assessment Noted Time PHQ-9 Depression Total Score: 0 02/06/20 3:38 PM EDT documented as of this encounter Care Teams Pharmaceutical Scientist Relationship Specialty Start Date End Date Luis Pritchard CNP PCP - General Family Medicine 12/13/24 documented as of this encounter
--- OUTSIDE RECORDS SUMMARY | 2025-04-28 15:15 | XMS_ITS | Clinical Summary ---
Author Organization [employer] Address [address] [facility] 7t [place] [address] Care Team Providers Care Ramp Boss Name Role Phone Macho Daingallitotrey RONY Primary Care Provider [phone] Allergies Active Allergy Reactions Criticality Noted Date Comments Shellfish Allergy Swelling 10/16/2018 Medications ProAir HFA 108 (90 Base) MCG/ACT inhaler INHALE 2 PUFFS BY MOUTH FOUR TIMES DAILY NEEDED FOR SHORTNESS OF BREATH 2 Active omeprazole (PriLOSEC) [address] capsule TAKE 1 CAPSULE BY MOUTH TWICE DAILY BEFORE MEALS 2 Active cyclobenzaprin e (Flexeril) 5 MG tabletIndicati ons:Costochond ritis, acute Take 1 tablet (5 mg) by [...] 14 capsule 3 Active hydrocortisone 2.5 % ointmentIndica tions:Balaniti s Apply topically 2 times daily. 60 g 1 3 Active clotrimazole (Lotrimin) 1 % cream Apply topically 2 times daily. 30 g Active azithromycin (Zithromax) 250 MG tablet TAKE DIRECTED PER PACKAGE DIRECTION FOR 5 DAYS Active benzonatate (Tessalon) 100 MG capsule TAKE 1 CAPSULE BY MOUTH THREE TIMES DAILY FOR 7 DAYS NEEDED FOR COUGH Active fluticasone (Flonase) 50 MCG/ACT nasal spray USE 1 SPARY INTO EACH NOSTRIL DAILY FOR 90 DAYS Active predniSONE (Deltasone) 20 MG tablet Take 1 tablet by mouth Once per day. Active ketoconazole (NIZOral) 2 % shampoo Apply topically 2 (two) times a week. 120 mL 2 Active budesonide-for moterol (Symbicort) 160-4.5 MCG/ACT inhaler Inhale 2 puffs in the morning and at bedtime. Rinse mouth with water after use to reduce aftertaste and incidence of candidiasis. Do not swallow. 1 each 2 04/28/2025 12:44 PM EST 5 04/28/20 Active acetaminophen (Tylenol Extra Strength) 500 MG tablet Take 2 tablets (1,000 mg) by mouth every 6 (six) hours if needed for mild pain for up to 10 days. 30 tablet 04/28/2025 12:44 PM EST 5 05/08/19 26 Active sodium chloride ([place] Nasal [place]) 0.65 % nasal spray Administer 1 spray into each nostril if needed for congestion. 30 mL 12 04/28/2025 12:44 PM EST 5 04/28/20 26 Active acetaminophen (Tylenol) 325 MG tablet Take 650 mg by mouth. 2 04/28/20 25 Discontinu ed(Therapy completed) Active Problems Problem Noted Date Diagnosed Date [...] Encounters Date Type Department Care Team Description 04/28/2025 11:00 AM EST Office Visit [facility] MEDICINE [address] [place] [address] Heather Araujo FNP Swollen neck (Primary Dx) 04/28/2025 Travel 04/24/[address] [address] Luis Pritchard CNP Nurse Triage 04/23/2025 Orders Only [facility] External Provider, [facility] 03/26/2025 2:40 PM EST Office Visit [facility] PEDS [address] [place] [address] Ashley Nelson MD Seborrheic dermatitis of scalp (Primary Dx); Milia of eyelid of left eye 03/26/2025 Travel 03/25/2025 Telephone [facility] [address] [place] [address] Luis Pritchard CNP Nurse Triage 02/07/2025 Telephone [facility] [address] [place] [address] Luis Pritchard CNP Nurse Triage 02/05/2025 3:30 PM EDT Office Visit [facility] PED[facility] [address] [place] [address] Luis Pritchard CNP Viral illness (Primary Dx) 02/05/2025 Travel 02/05/2025 Telephone [facility] MED & PEDS [address] [place] [address] Luis Pritchard CNP chart prep 02/03/2025 Telephone [facility] [address] [place] [address] Luis Pritchard CNP NTTS Follow up from [...] 22 04/28/2025 11:06 AM EST Oxygen Saturation 98% 03/26/2025 2:45 PM EST Inhaled Oxygen Concentration - - Weight 92.7 kg (204 lb 6.4 oz) 04/28/2025 11:06 AM EST Height 180.3 cm (5' 11 ) 04/28/2025 11:06 AM EST Body Mass Index 28.51 04/28/2025 11:06 AM EST Plan of Treatment Health Maintenance Due Date Last Done Comments Dental Oral Exam 1995 Dental Prophylaxis 1994 Lipid Panel 1994 Family Planning (PISQ) 2009 HPV Vaccines (1 - Male 3-dos e series) 2009 Hepatitis B Vaccines (1 of 3 - 19+ 3-dose series) 2013 Pneumococcal Vaccine: Pediatrics (0 to 5 Years) and At-Risk Patients (6 to 49) Years (1 of 2 - PCV) 2013 Dental X-Ray: Bitewings 04/18/2024 04/17/2023 Dental X-Ray: Full Mouth 08/06/2024 08/05/2021 COVID-19 Vaccine (2 - 2024-2 6 season) 2025 01/04/2021 Influenza Vaccine (#1) 2025 Alcohol/Substance Use Screening 02/05/2026 02/05/2025 Depression Screening 02/05/2026 02/05/2025, 02/05/2025 SDOH Screening 02/05/2026 02/05/2025 Disability Screening 04/28/2026 04/28/2025 Tobacco Screening 04/28/2026 04/28/2025 DTaP/Tdap/Td Vaccines (2 - T d or [...] QL NAAT Routine 04/23/2025 8:34 AM EST CBC WITH AUTO DIFFERENTIAL Routine 02/05/2025 3:51 [...] Recently Relevant to Health Maintenance Results * XR Chest 2 Views (04/23/2025 9:03 AM EST) Anatomical Region Laterality Modality Chest Radiographic Yaritza ging 04/23/2025 9:03 AM EST Narrative 04/23/2025 9:15 AM EST [address] [address] XRay Report Signed Patient: Neo Roque MR#: [id number] : 1995 Acct:[id number] Age/Sex: 29 / M ADM Date: 04/23/25 Loc: .ED Attending Dr: Ordering Physician: Suze Bai Date of Service: 04/23/25 Procedure(s): XR chest 2V Accession Number(s): [id number] cc: Suze Bai; Venus Panda MD Reason [...] Dion Hancock MD 04/23/2025 09:12 AM EST Dictated By: Dion Hancock MD Signed By: <Electronically signed by Dion Hancock MD in OV> 04/23/25911 DD/ 2 TD/TT: 04/23/25903 Marine Mechanic: KATHERINE Procedure Note Donotuseinterpreter, Image - 04/23/[address] [address] XRay Report Signed Patient: Nick Roque#: [id number] : 1995Acct:[id number] Age/Sex: 29 / MADM Date: 04/23/25 Loc: HO.ED Attending Dr: Ordering Physician: Suze Bai Date of Service: 04/23/25 Procedure(s): XR chest 2V Accession Number(s): [id number] cc: Suze Bai; Venus Panda MD Reason [...] signed by Dion Hancock MD in OV> 04/23/25 0912 DD/ 0903 TD/TT: 04/23/25 0904 Marine Mechanic: KATHERINE [facility] External Provider IMG XR PROCEDURES Final Result * SARS-CoV-2 RNA, Influenza A/B, and RSV RNA, Ql NAAT (04/23/2025 8:34 AM EST) Influenza A PCR NEGATIVE Negative [facility] Influenza B PCR NEGATIVE Negative [facility] Resp Syncy Virus RNA Qual PCR NEGATIVE Negative [facility] SARS COV2 PCR NEGATIVE Negative [facility] Comment:All test results mus t [...] use by authorized laboratories.Testing performed on the [employer] GeneXpert utilizingreal-time RT-PCR.All SARS CoV2 and positive influenza A/B results arereported to [facility]. 04/23/2025 8:34 AM EST 04/23/2025 8:41 AM EST us Generic External Data Provider LAB MICROBIOLOGY - GENERAL ORDERABLES Final Result [facility] [address] [place] [address] [phone] * CBC auto differential (02/05/2025 3:51 PM EDT) White Blood Count 8.5 4.8 - 10.8 X10*3/uL [facility] Red Blood Count 5.31 4.60 - 5.80 X10*6/uL [facility] Hemoglobin 14.8 14.0 - 18.0 g/dl [facility] Hematocrit 45.6 42.0 - 52.0 % [facility] Mean Corpuscular Volume 85.9 80.0 - 98.0 fL [facility] Mean Corpuscular Hemoglobin 27.9 27.0 - 33.0 pg [facility] Mean Corpuscular HGB Conc 32.5 31.0 - 36.0 g/dl [facility] Red Cell Distribution Width 13.0 11.0 - 16.0 % [facility] Platelet Count 318 160 - 400 X10*3/uL [facility] Mean Platelet Volume 10.4 9.4 - 12.4 fL [facility] Neutrophils Percent Auto 61.8 45 - 73 % [facility] Imm Gran Pct Auto 0.2 0.0 - 0.4 % [facility] Lymphocytes Percent Auto 27.7 20 - 40 % [facility] Monocytes Percent Auto 6.3 2 - 11 % [facility] Eosinophils Percent Auto 3.6 0 - 4 % [facility] Basophils Percent Auto 0.4 0 - 2 % [facility] NRBC Pct Auto 0.0 0.0 - 0.2 /100WBC [facility] Neutrophils Absolute Auto 5.3 2.0 - 8.3 x10*3/uL [facility] Imm Gran Abs Auto 0.02 0.00 - 0.03 X10*3/uL [facility] Lymphocytes Absolute Auto 2.4 1.2 - 4.9 X10*3/uL [facility] Monocytes Absolute Auto 0.5 0.1 - 1.2 X10*3/uL [facility] Eosinophils Absolute Auto 0.3 0.0 - 0.4 X10*3/uL [facility] Basophils Absolute Auto 0.0 0.0 - 0.2 X10*3/uL [facility] NRBC Abs Auto 0.000 0.0 - 0.012 X10*3/uL [facility] Blood Venous blood specimen / Unknown 02/05/2025 3:51 PM EDT 02/05/2025 6:09 PM EDT [facility] LAB BLOOD ORDERABLES Jenn l Result [facility] [address] [place] [phone] * (ABNORMAL) Basic Metabolic Panel (02/05/2025 3:51 PM EDT) Sodium 140 135 - 145 mmol/L [facility] Potassium 3.5 3.3 - 5.1 mmol/L [facility] Chloride 105 96 - 108 mmol/L [facility] Carbon Dioxide 28 22 - 29 mmol/L [facility] Anion Gap 11(L) 12 - 20 [facility] Urea Nitrogen (BUN) 11 9 - 16 mg/dL [facility] Creatinine, Serum 0.77 0.5 - 1.4 mg/dL [facility] Estimated Glomerular Filt Rate >60 [facility] Comment:Chronic Kidney Disea se: Estimated GFR < 60 mL/min/1.73j9Kswyho Kidney Disease: Estimated GFR < 15 mL/min/1.73m2 Glucose 93 60 - 115 mg/dL [facility] Calcium 9.4 8.4 - 10.2 mg/dL [facility] Blood Venous blood specimen / Unknown 02/05/2025 3:51 PM EDT 02/05/2025 6:09 PM EDT [facility] LAB BLOOD ORDERABLES Jenn l Result Performing Organization Address [facility]/ZIP Co de Phone Number [facility] [address] [place] [phone] * Influenza B (ID NOW Rapid Molecular) (02/05/2025 3:50 PM EDT) Influenza B Negative Negative, Indeterminate [facility] QC Media Lot # [facility] Comment:[id number] Lot# Expiration Date [facility] Comment:06/07/2026 Swab 02/05/2025 3:50 PM EDT [facility] POINT OF CARE TEST ENTER/ EDIT ORDERABLES Final Result Performing Organization Address [facility] Co de Phone Number [facility] [address] [place] [phone] * POCT Rapid COVID Ag (02/05/2025 3:50 PM EDT) Rapid COVID Ag Negative QC Media Lot # Comment:[id number] Lot# Expiration Date Comment:11/29/2025 Swab 02/05/2025 3:50 PM EDT [facility] POINT OF CARE TEST ENTER/ EDIT ORDERABLES Final Result * Influenza A (ID NOW Rapid Molecular) (02/05/2025 3:49 PM EDT) Influenza A Negative Negative, Indeterminate [facility] QC Media Lot # [facility] Comment:[id number] Lot# Expiration Date [facility] Comment:06/07/2026 Swab 02/05/2025 3:49 PM EDT Luis Pritchard CNP POINT OF CARE TEST ENTER/ EDIT ORDERABLES Final Result Performing Organization Address City/[facility]/ZIP Co de Phone Number [facility] [address] [place] [address] [phone] * HEPATITIS C AB W/REFL TO HCV RNA, QN, PCR (08/31/2021 10:57 AM EDT) HEPATITIS C ANTIBODY NON-REACT MODESTA NON-REACT MODESTA [facility] INDEX 0.01 <1.00 [facility] Comment: HCV antibody was non-reactive. There is no laboratory evidence of HCV infection. In most cases, no further action is required. However, if recent HCV exposure is suspected, a test for HCV RNA (test code 74056) is suggested. For additional information please refer to http://education.[employer]faq/JKB32k7 (This link is being provided for informational/ educational purposes only.) 08/31/2021 10:5 7 AM EDT Daniel Akhtar MD HISTORICAL/NON ORDERABLE LABS Fi nal Result Performing Organization Address City/[facility]/ZIP Co de Phone Number [facility] [address] * HIV 1/2 ANTIGEN/ANTIBODY,FOURTH GENERATION W/RFL (08/31/2021 10:57 AM EDT) HIV-1/2 ANTIGEN AND ANTIBODIES, 4TH GENERATION W/ REFLEX NON-REACT MODESTA NON-REACT MODESTA [facility] Comment: HIV-1 antigen [...] purpose. For additional information please refer to http://education.[employer].CAPNIA/faq/PHK223 (This link is being provided for informational/ educational purposes only.) The performance of this assay has not been clinically validated in patients less than 2 years old. 08/31/2021 10:5 7 AM EDT us Daniel Akhtar MD LAB BLOOD ORDERABLES Final Resul t [facility] [address] from Last 3 Months or Most Recently Relevant to Health Maintenance Insurance [facility] C3 DENTAL-[facility] MEDICAID STAND ADULT Care Teams Ramp Boss Relationship Specialty Start Date End Date Luis Pritchard CNP PCP - General Family Medicine 12/13/24
--- OUTSIDE RECORDS SUMMARY | 2025-04-28 15:15 | XMS_ITS | Clinical Summary ---
Author Organization [facility] it Address [address] [place] [address] Care Team Providers Care [place] Tribunal Member Name Role Phone Unavailable Primary Care Provider [...]
--- OUTSIDE RECORDS SUMMARY | 2025-04-28 15:15 | XMS_ITS | Encounter Summary ---
Author Organization [employer] Address [address] [facility] 7t [place] [address] Care Team Providers Care Skip Load Driver Name Role Phone PritchardLuis RONY Primary Care Provider [phone] Encounter Details Date Type Department Care Team (Latest Contact Info) Description 04/28/2025 Travel Social History Tobacco Use Types Packs/Day [...] documented as of this encounter Care Teams Skip Load Driver Relationship Specialty Start Date End Date Luis Pritchard CNP PCP - General Family Medicine 12/13/24 documented as of this encounter
--- OUTSIDE RECORDS SUMMARY | 2025-04-28 15:15 | XMS_ITS | Encounter Summary ---
Author Organization [employer] Address [address] [facility] 7t [place] [address] Care Team Providers Care Glazing Superintendent Name Role Phone Venus Panda MD Primary Care Provider [phone] Luis Pritchard CNP Primary Care Provider [phone] Reason for Visit * Reason Onset Date Comments Referral 09/25/2023 Encounter Details Date Type Department Care Team ([facility] st Contact Info) Description 09/25/2023 Telephone [facility] MEDICINE [address] [place] [address] Venus Panda MD [address] [place], [place] [phone] Referral Social History Tobacco Use Types Packs/Day [...] If any questions please contact pt at [phone]. documented in this encounter Plan of Treatment Not on file documented as of this encounter Visit Diagnoses Not on filedocumented in this encounter Care Teams Glazing Superintendent Relationship Specialty Start Date End Date Venus Panda MD [address] [place] [address] PCP - General Family Medicine 04/28/15 12/12/24 Luis Pritchard CNP [address] [place] [address] PCP - General Family Medicine 12/13/24 documented as of this encounter
--- OUTSIDE RECORDS SUMMARY | 2025-04-28 15:15 | XMS_ITS | Clinical Summary ---
Author Organization [facility] Address [address] [address] Phone Care Team Providers Care Aerodynamics Professor Name Role Phone Unknown, Unknown Primary Care Provider Rita kaye Allergies Active Allergy Reactions Criticality Noted Date Comments Shellfish Containing Products Swelling 2018 Medications ferrous sulfate 324 mg (65 mg [place] iron) TbEC Take 1 tablet (324 mg [...] (10/08/2018 8:45 AM EDT) HCV Negative Negative [facility] Comment: This is a screening test and should be confirmed with molecular testing Blood 10/08/2018 8:45 AM EDT 10/08/2018 8:49 AM EDT us Don Bishop MD LAB BLOOD BKR ORDERABLES Final Result [facility] [address] [place] [address] from Last 3 Months or Most Recently Relevant to Health Maintenance Insurance C3 ACO C3 ACO C3 ACO C3 ACO C3 ACO C3 ACO C3 ACO C3 ACO Care Teams Aerodynamics Professor Relationship Specialty Start Date End Date Unknown, Unknown, PCP - General 10/08/18 Additional Source Comments The information contained in this document represents components of the legal health record. It is not the complete legal health record.[facility]
--- OUTSIDE RECORDS SUMMARY | 2025-04-28 15:15 | XMS_ITS | Encounter Summary ---
Author Organization [employer] Address 75 [facility] 7t [place] [address] Care Team Providers Care Filler Blender Name Role Phone Venus Panda MD Primary Care Provider [phone] Luis Pritchard CNP Primary Care Provider [phone] Encounter Details Date Type Department Care Team ([facility] Contact Info) Description 01/26/2024 Orders Only [facility] CHC MED & PEDS [address] [place], [place] [phone] Henrietta Carroll MD [address] [place] [address] Social History Tobacco Use Types Packs/Day Years [...] on filedocumented in this encounter Care Teams Filler Blender Relationship Specialty Start Date End Date Venus Panda MD [address] [place] [address] PCP - General Family Medicine 04/28/15 12/12/24 Luis Pritchard CNP [address] [place] [address] PCP - General Family Medicine 12/13/24 documented as of this encounter
--- OUTSIDE RECORDS SUMMARY | 2025-04-28 15:15 | XMS_ITS | Encounter Summary ---
Author Organization [employer] Address 75 [facility] 7t [place] [address] Care Team Providers Care Mainframe Systems Administrator Name Role Phone Venus Panda MD Primary Care Provider [phone] Luis Pritchard CNP Primary Care Provider [phone] Reason for Visit * Reason Onset Date Comments Nurse Triage 08/09/2023 Encounter Details Date Type Department Care Team ([facility] st Contact Info) Description 08/09/2023 Telephone [facility] MEDICINE [address] [place] [address] Venus Panda MD [address] [place], [place] [phone] Nurse Triage Social History Tobacco Use Types [...] on filedocumented in this encounter Care Teams Mainframe Systems Administrator Relationship Specialty Start Date End Date Venus Panda MD 230 [place] [address] PCP - General Family Medicine 04/28/15 12/12/24 Luis Pritchard CNP [address] [place] [address] PCP - General Family Medicine 12/13/24 documented as of this encounter
[2025-04-28 17:10] LABS: Free T4 (Free Thyroxine) 0.97 ng/dL (0.71-1.85)
== END 2025-04-28 11:57 | disposition home or self-care (01) ==
LOC: HO.HHCL 11:56
PROVIDERS: PCP Student in an Organized Health Care Education/Training Program; Visit Provider Nurse Practitioner Family
DX: R22.1 Localized swelling, mass and lump, neck (principal)
CPT/HCPCS: 36415; 84439; 84443

== ENCOUNTER 2025-05-05 10:47 | Outpatient (REF) | payer MEDICAID, SELFPAY ==
--- OUTSIDE RECORDS SUMMARY | 2025-05-05 10:00 | XMS_ITS | Encounter Summary ---
Author Organization [employer] Address 75 [facility] 7t [place] [address] Care Team Providers Care Automotive Diagnostic Technician Name Role Phone Macho Daingallitotrey RONY Primary Care Provider [phone] Encounter Details Date Type Department Care Team ([facility] Contact Info) Description 05/05/2025 10:00 AM EST Office Visit [facility] CHC MED & PEDS [address] [place], [place] [phone] Henrietta Carroll MD [address] [place] [address] Mild intermittent asthma with exacerbation (Primary Dx); Acute cough; Ear ache Social History Tobacco Use Types Packs/Day Years [...] Sign Reading Time Taken Comments Blood Pressure 112/63 05/05/2025 10:17 AM EST Pulse 79 05/05/2025 10:17 AM EST Temperature 37.1 C (98.8 F) 05/05/2025 10:17 AM EST Respiratory Rate 20 05/05/2025 10:17 AM EST Oxygen Saturation 96% 05/05/2025 10:17 AM EST Inhaled Oxygen Concentration - - Weight - - Height 180.3 cm (5' 11 ) 05/05/2025 10:17 AM EST Body Mass Index - - documented in this encounter Progress Notes * Henrietta Carroll MD - 05/05/2025 10:00 AM EST SUBJECTIVE Neo Roque is a 29 y.o. male who presents for No chief complaint on file.. The note from triage was reviewed: TC placed to pt for triage. Pt reports yesterday they experienced sharp left- sided chest pain withcoughing and inspiration that would come and go throughout the day. Pt reports it has improved today. Pt reports productive cough with brown sputum. Pt reports pain with inspiration in their right lung and in right side of back. Pt reports they diagnosed him with bronchial spasms. Pt reports they have been taking medications as prescribed. Pt concerned about symptoms and would like to be seen today. Pt denies SOB, blurry vision, headache, chest pain, fever, chills. Pt booked for same day care appointment at 10 AM with . Pt agreeable to appointment and denies questions at this time. ED evaluation on 04/23/25 for SOB. 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 Chest x-ray: No acute pulmonary findings. Discharged on a prednisone burst x 5 days. History obtained from Mr Neo Roque - Cough present for several months, worse in the morning and at night, triggered by cold and exposure to freezer at work - Right posterior lower chest discomfort with breathing, especially in the morning - Dizziness associated with breathing - Pain managed with medication, including use of nebulizer, which provides some relief - Previous emergency room visit, received acetaminophen and cough medication (including symbicort ), cough persists despite treatment - Prior chest X-ray reported as normal - Left ear pain for months, intermittent, with redness noted previously, currently resolved - No antibiotics received for current symptoms - COVID test previously negative Problem List[1] Allergies[2] Medications Ordered Prior to Encounter[3] Review of Systems Constitutional: Negative for chills, diaphoresis and fatigue. HENT: Negative for drooling, ear discharge and ear pain. Intermittent left ear ache No drainage Eyes: Negative for pain, redness and itching. Respiratory: Positive for cough. Skin: Negative for pallor, rash and wound. OBJECTIVE BP 112/63 (BP Location: Left arm, Patient Position: Sitting, BP Cuff Size: Adult) Pulse 79 Temp98.8 ??F (37.1 ??C) (Oral) Resp 20 Ht 5' 11 (1.803 m) SpO2 96% BMI 28.51 kg/m?? There were no vitals filed for this visit. Physical Exam Constitutional: General: He is not in acute distress. Appearance: Normal appearance. He is not ill-appearing, toxic-appearing or diaphoretic. HENT: Right Ear: Tympanic membrane, ear canal and external ear normal. There is no impacted cerumen. Left Ear: Tympanic membrane, ear canal and external ear normal. There is no impacted cerumen. Cardiovascular: Rate and Rhythm: Normal rate. Pulmonary: Effort: Pulmonary effort is normal. Skin: Findings: No lesion or rash. Neurological: General: No focal deficit present. Mental Status: He is alert. Psychiatric: Mood and Affect: Mood normal. Assessment/Plan Assessment/Plan Diagnoses and all orders for this visit: Mild intermittent asthma with exacerbation - XR Chest 2 Views; Future - CBC auto differential; Future - T-SPOT??.TB; Future - C-reactive Protein; Future - Sed Rate by Modified [place]gren; Future Acute cough - POCT Rapid Covid-19 BinaxNOW - POCT Rapid Influenza A OSOM - POCT Rapid Influenza B OSOM - XR Chest 2 Views; Future - CBC auto differential; Future - T-SPOT??.TB; Future - C-reactive Protein; Future - Sed Rate by Modified [place]; Future Ear ache Mild intermittent asthma with exacerbation: - Asthma exacerbation likely triggered by environmental factors at workplace (freezer exposure) andpossibly at home (carpets, dog). Airways appear reactive to environmental triggers. - Continue use of nebulizer as needed. Ordered repeat chest X-ray to compare with previous imaging.Ordered CBC and TB test to evaluate for infection. Recommended environmental modifications at home,including washing carpets and considering an air purifier. Advised to identify and minimize exposure to triggers at work and home. Acute cough: - Persistent cough, partially responsive to nebulizer, with environmental triggers identified (coldexposure at work, possible allergens at home). - Ordered repeat chest X-ray, CBC, and TB test to rule out infection and other causes. Advised environmental modifications at home. Noted that further medication is not the focus until etiology is clarified. Left ear pain: - Left ear pain present for months, no drainage, right ear normal. Possible viral etiology considered. - Monitor symptoms. No acute intervention recommended at this time. This note was drafted using [employer]ient [employer]) technology. The patient/patient's guardian has been informed and has consented to the use of this technology: Yes [1] Patient Active Problem List Diagnosis Male infertility Iron deficiency anemia due to chronic blood loss Gastroesophageal reflux disease without esophagitis Rash Balanitis Seborrheic dermatitis of scalp Milia of eyelid of left eye Swollen neck Mild intermittent asthma with exacerbation [2] Allergies Allergen Reactions Shellfish Allergy Swelling [3] Current Outpatient Medications on File Prior to Visit Medication Sig Dispense Refill acetaminophen (Tylenol Extra Strength) 500 MG tablet Take 2 tablets (1,000 mg) by mouth every 6 (six) hours if needed for mild pain for up to 10 days. 30 tablet 0 albuterol 1.25 MG/3ML nebulizer solution Take 1.25 mg by nebulization every 4 (four) hours if needed for wheezing or shortness of breath. INHALE 3 ML VIA NEBULIZER EVERY 4 TO 6 HOURS NEEDED FOR BRONCHOSPASM azithromycin (Zithromax) 250 MG tablet TAKE DIRECTED PER PACKAGE DIRECTION FOR 5 DAYS benzonatate (Tessalon) 100 MG capsule TAKE 1 CAPSULE BY MOUTH THREE TIMES DAILY FOR 7 DAYS NEEDED FOR COUGH budesonide-formoterol (Symbicort) 160-4.5 MCG/ACT inhaler Inhale 2 puffs in the morning and at bedtime. Rinse mouth with water after use to reduce aftertaste and incidence of candidiasis. Do not swallow. 1 each 2 cetirizine (ZyrTEC) 10 MG tablet Take 1 tablet (10 mg) by mouth in the morning for 14 days. 14 tablet 0 clotrimazole (Lotrimin) 1 % cream Apply topically 2 times daily. 30 g 0 cyclobenzaprine (Flexeril) 5 MG tablet Take 1 tablet (5 mg) by mouth in the morning. 30 tablet 0 doxepin (SINEquan) 10 MG capsule Take 1 capsule (10 mg) by mouth at bedtime. 14 capsule 0 fluticasone (Flonase) 50 MCG/ACT nasal spray USE 1 SPARY INTO EACH NOSTRIL DAILY FOR 90 DAYS hydrocortisone 2.5 % ointment Apply topically 2 times daily. 60 g 1 ketoconazole (NIZOral) 2 % shampoo Apply topically 2 (two) times a week. 120 mL 2 omeprazole (PriLOSEC) [address] capsule TAKE 1 CAPSULE BY MOUTH TWICE DAILY BEFORE MEALS permethrin (Elimite) 5 % cream apply to skin from hairline to toes and wash off 8-10 hours later 200 g 0 predniSONE (Deltasone) 20 MG tablet Take 1 tablet by mouth Once per day. ProAir HFA 108 (90 Base) MCG/ACT inhaler INHALE 2 PUFFS BY MOUTH FOUR TIMES DAILY NEEDED FOR SHORTNESS OF BREATH sodium chloride ([place] Nasal [place]) 0.65 % nasal spray Administer 1 spray into each nostril if needed for congestion. 30 mL 12 triamcinolone (Kenalog) 0.5 % ointment Apply topically 2 times daily. 60 g 0 No current facility-administered medications on file prior to visit. documented in this encounter Plan of Treatment Scheduled Orders Name Type Priority Associated Diagnoses Orde r Schedule XR Chest 2 Views Imaging Routine Mild intermittent asthma with exacerbation Acute cough Expected: 05/05/2025, Expires: 05/05/2026 CBC auto differential Lab Routine Mild intermittent asthma with exacerbation Acute cough Expected: 05/05/2025 (Approximate), Expires: 05/05/2026 T-SPOT .TB Lab Routine Mild intermittent asthma with exacerbation Acute cough Expected: 05/05/2025 (Approximate), Expires: 05/05/2026 C-reactive Protein Lab Routine Mild intermittent asthma with exacerbation Acute cough Expected: 05/05/2025 (Approximate), Expires: 05/05/2026 Sed Rate by Modified Westergren Lab Routine Mild intermittent asthma with exacerbation Acute cough Expected: 05/05/2025, Expires: 05/05/2026 documented as of this encounter Procedures Procedure Name Priority Date/Time Associated Diagnosis Comments POCT RAPID COVID ANTIGEN Routine 05/05/2025 10:51 AM EST Acute cough POCT INFLUENZA A Routine 05/05/2025 10:5 0 AM EST Acute cough POCT INFLUENZA B Routine 05/05/2025 10:4 9 AM EST Acute cough documented in this encounter Results * POCT Rapid Covid-19 BinaxNOW (05/05/2025 10:51 AM EST) Rapid COVID Ag Negative QC Media Lot # [id number] Comment:controls passed Lot# Expiration Date [id number] Swab 05/05/2025 10:5 1 AM EST us Henrietta Carroll MD POINT OF CARE TEST ENTER/ED IT ORDERABLES Final Result * POCT Rapid Influenza A OSOM (05/05/2025 10:50 AM EST) Rapid Influenza A Ag Negative Negative, Indeterminate QC Media Lot # [id number] Comment:controls passed Lot# Expiration Date Swab Nasopharyngeal structure / Unknown 05/05/2025 10:50 AM EST us Henrietta Carroll MD POINT OF CARE TEST ENTER/ED IT ORDERABLES Final Result * POCT Rapid Influenza B OSOM (05/05/2025 10:49 AM EST) Rapid Influenza B Ag Negative Negative, Indeterminate QC Media Lot # [id number] Comment:controls passed Lot# Expiration Date , Swab 05/05/2025 10:4 9 AM EST us Henrietta Carroll MD POINT OF CARE TEST ENTER/ED IT ORDERABLES Final Result documented in this encounter Visit Diagnoses Diagnosis Mild intermittent asthma with exacerbation- Primary Unspecified asthma, with exacerbation Acute cough Ear ache documented in this encounter Additional Health Concerns Assessment Noted Time PHQ-9 Depression Total Score: 0 02/06/20 3:38 PM EDT documented as of this encounter Care Teams Automotive Diagnostic Technician Relationship Specialty Start Date End Date Luis Pritchard CNP PCP - General Family Medicine 12/13/24 documented as of this encounter
--- OUTSIDE RECORDS SUMMARY | 2025-05-05 12:24 | XMS_ITS | Clinical Summary ---
Author Organization [facility] Address [address] [address] Phone Care Team Providers Care Grain Loader Name Role Phone Unknown, Unknown Primary Care Provider Rita kaye Allergies Active Allergy Reactions Criticality Noted Date Comments Shellfish Containing Products Swelling 2018 Medications ferrous sulfate 324 mg (65 mg [place] iron) TbEC Take 1 tablet (324 mg [...] (10/08/2018 8:45 AM EDT) HCV Negative Negative [facility] Comment: This is a screening test and should be confirmed with molecular testing Blood 10/08/2018 8:45 AM EDT 10/08/2018 8:49 AM EDT us Don Bishop MD LAB BLOOD BKR ORDERABLES Final Result [facility] [address] [place] [address] from Last 3 Months or Most Recently Relevant to Health Maintenance Insurance C3 ACO C3 ACO C3 ACO C3 ACO C3 ACO C3 ACO C3 ACO C3 ACO Care Teams Grain Loader Relationship Specialty Start Date End Date Unknown, Unknown, PCP - General 10/08/18 Additional Source Comments The information contained in this document represents components of the legal health record. It is not the complete legal health record.[facility]
--- OUTSIDE RECORDS SUMMARY | 2025-05-05 12:24 | XMS_ITS | Encounter Summary ---
Author Organization [employer] Address [address] [facility] 7t [place] [address] Care Team Providers Care Ccna Name Role Phone Veuns Panda MD Primary Care Provider [phone] Luis Pritchard CNP Primary Care Provider [phone] Reason for Visit * Reason Onset Date Comments Nurse Triage 08/09/2023 Encounter Details Date Type Department Care Team ([facility] st Contact Info) Description 08/09/2023 Telephone [facility] MEDICINE [address] [place] [address] Venus Panda MD [address] [place], [place] [phone] Nurse Triage Social History Tobacco Use Types [...] on filedocumented in this encounter Care Teams Ccna Relationship Specialty Start Date End Date Venus Panda MD [address] [place] [address] PCP - General Family Medicine 04/28/15 12/12/24 Luis Pritchard CNP [address] [place] [address] PCP - General Family Medicine 12/13/24 documented as of this encounter
--- OUTSIDE RECORDS SUMMARY | 2025-05-05 12:24 | XMS_ITS | Encounter Summary ---
Author Organization [employer] Address [address] [facility] 7t [place] [address] Care Team Providers Care Addiction Nurse Name Role Phone Venus Panda MD Primary Care Provider [phone] Luis Pritchard CNP Primary Care Provider [phone] Encounter Details Date Type Department Care Team ([facility] st Contact Info) Description 05/15/2023 Telephone [facility] CHC ADULT DENTAL [address] [place], [place] [phone] Charlie Walters DDS [address] [place] [address] Social History Tobacco Use Types Packs/Day Years [...] on filedocumented in this encounter Care Teams Addiction Nurse Relationship Specialty Start Date End Date Venus Panda MD [address] [place] [address] PCP - General Family Medicine 04/28/15 12/12/24 Luis Pritchard CNP [address] [place] [address] PCP - General Family Medicine 12/13/24 documented as of this encounter
--- OUTSIDE RECORDS SUMMARY | 2025-05-05 12:24 | XMS_ITS | Encounter Summary ---
Author Organization [employer] Address 75 [facility] 7t [place] [address] Care Team Providers Care Labor Arbitrator Hearing Office Name Role Phone Venus Panda MD Primary Care Provider [phone] Luis Pritchard CNP Primary Care Provider [phone] Reason for Visit * Reason Onset Date Comments Medication Question 01/25/2024 Encounter Details Date Type Department Care Team ([facility] st Contact Info) Description 01/25/2024 Telephone [facility] CHC MED & PEDS [address] [place], [place] [phone] Venus Panda MD [address] [place] [address] Medication Question Social History Tobacco Use Types [...] eye drops due to needing clarification. Pharmacy: [id number] documented in this encounter Plan of Treatment Not on file documented as of this encounter Visit Diagnoses Not on filedocumented in this encounter Care Teams Labor Arbitrator Hearing Office Relationship Specialty Start Date End Date Venus Panda MD [address] [place] [address] PCP - General Family Medicine 04/28/15 12/12/24 Luis Pritchard CNP [address] [place] [address] PCP - General Family Medicine 12/13/24 documented as of this encounter
--- OUTSIDE RECORDS SUMMARY | 2025-05-05 12:24 | XMS_ITS | Encounter Summary ---
Author Organization [employer] Address 75 [facility] 7t [place] [address] Care Team Providers Care Stamping Bench Die Maker Name Role Phone Luis Pritchard CNP Primary Care Provider [phone] Reason for Visit * Reason Onset Date Comments Nurse Triage 05/05/2025 Encounter Details Date Type Department Care Team ([facility] Contact Info) Description 05/05/2025 Telephone [facility] MED & PEDS [address] [place], [place] [phone] Luis Pritchard CNP [address] [place], [place] [phone] Nurse Triage Social History Tobacco Use Types [...] encounter Miscellaneous Notes * Telephone Encounter - Betina Begum RN - 05/05/2025 9:35 AM EST TC placed to pt for triage. Pt reports yesterday they experienced sharp left- sided chest pain with coughing and inspiration that would come and go [...] appointment and denies questions at this time. Protocols Used (2): Cough (Adult), Chest Pain (Adult) Disposition for Call: See in Office or Video Visit Today Protocol Used: Cough (Adult) Protocol-Based Disposition: See in Office or Video Visit Today Video visit offer not recorded Positive Triage Question: * Coughing up flavia-colored (reddish-brown) or blood-tinged sputum * All higher-acuity triage questions were negative. Care Advice Discussed: * Reasons To Call Back - Difficulty breathing - Cough lasts more than 3 weeks - Fever lasts more than 3 days - You become worse Protocol Used: Chest Pain (Adult) Protocol-Based Disposition: Home Care Positive Triage Question: * Chest pain(s) lasting a few seconds from coughing * All higher-acuity triage questions were negative. Care Advice Discussed: * Reasons To Call Back - Chest pain increases in frequency, duration or severity - Chest pain lasts over 5 minutes - Chest pains persist over 3 days - Difficulty breathing or unusual sweating occurs - Fever over 100.4 F (38.0 C) - You become worse * Telephone Encounter - Deniz Coyle - 05/05/2025 8:09 AM EST Symptom: Chest Pain - Adult Outcome: Talk to a nurse or provider within 15 minutes Reason: Started within the past 3 days.. Pt was diagnosed with bronchial spasms Contact pt at [phone] documented in this encounter Plan of Treatment Not on file documented as of this encounter Visit Diagnoses Not on filedocumented in this encounter Additional Health Concerns Assessment Noted Time PHQ-9 Depression Total Score: 0 02/06/20 3:38 PM EDT documented as of this encounter Care Teams Stamping Bench Die Maker Relationship Specialty Start Date End Date Luis Pritchard CNP PCP - General Family Medicine 12/13/24 documented as of this encounter
--- OUTSIDE RECORDS SUMMARY | 2025-05-05 12:24 | XMS_ITS | Encounter Summary ---
Author Organization [employer] Address [address] [facility] 7t [place] [address] Care Team Providers Care Cold Roll Packer Sheet Iron Name Role Phone PritchardLuis RONY Primary Care Provider [phone] Encounter Details Date Type Department Care Team (Latest Contact Info) Description 05/05/2025 Travel Social History Tobacco Use Types Packs/Day [...] documented as of this encounter Care Teams Cold Roll Packer Sheet Iron Relationship Specialty Start Date End Date Luis Pritchard CNP PCP - General Family Medicine 12/13/24 documented as of this encounter
--- OUTSIDE RECORDS SUMMARY | 2025-05-05 12:24 | XMS_ITS | Encounter Summary ---
Author Organization [employer] Address [address] [facility] 7t [place] [address] Care Team Providers Care Swim Coach Name Role Phone Venus Panda MD Primary Care Provider [phone] Luis Pritchard CNP Primary Care Provider [phone] Reason for Visit * Reason Onset Date Comments Referral 09/25/2023 Encounter Details Date Type Department Care Team ([facility] st Contact Info) Description 09/25/2023 Telephone [facility] MEDIC[facility] [address] [place] [address] Venus Panda MD [address] [place], [place] [phone] Referral Social History Tobacco Use Types Packs/Day [...] If any questions please contact pt at [phone]. documented in this encounter Plan of Treatment Not on file documented as of this encounter Visit Diagnoses Not on filedocumented in this encounter Care Teams Swim Coach Relationship Specialty Start Date End Date Venus Panda MD [address] [place] [address] PCP - General Family Medicine 04/28/15 12/12/24 Luis Pritchard CNP [address] [place] [address] PCP - General Family Medicine 12/13/24 documented as of this encounter
--- OUTSIDE RECORDS SUMMARY | 2025-05-05 12:25 | XMS_ITS | Clinical Summary ---
Author Organization [employer] Address [address] [facility] 7t [place] [address] Care Team Providers Care Freight And Passenger Agent Name Role Phone Macho Daingallitotrey RONY Primary Care Provider [phone] Allergies Active Allergy Reactions Criticality Noted Date Comments Shellfish Allergy Swelling 10/16/2018 Medications ProAir HFA 108 (90 Base) MCG/ACT inhaler INHALE 2 PUFFS BY MOUTH FOUR TIMES DAILY NEEDED FOR SHORTNESS OF BREATH 12/02/19 22 Active omeprazole (PriLOSEC) [address] capsule TAKE 1 CAPSULE BY MOUTH TWICE DAILY BEFORE MEALS 07/17/19 22 Active cyclobenzaprine (Flexeril) 5 MG tabletIndication s:Costochondriti s, acute Take 1 tablet (5 mg) by [...] capsule 12/10/19 23 Active hydrocortisone 2.5 % ointmentIndicati ons:Balanitis Apply topically 2 times daily. 60 g 1 01/17/20 23 Active clotrimazole (Lotrimin) 1 % cream Apply topically 2 times daily. 30 g 12/16/19 Active azithromycin (Zithromax) 250 MG tablet TAKE DIRECTED PER PACKAGE DIRECTION FOR 5 DAYS 01/18/20 Active benzonatate (Tessalon) 100 MG capsule TAKE 1 CAPSULE BY MOUTH THREE TIMES DAILY FOR 7 DAYS NEEDED FOR COUGH 01/22/20 Active fluticasone (Flonase) 50 MCG/ACT nasal spray USE 1 SPARY INTO EACH NOSTRIL DAILY FOR 90 DAYS 01/18/20 Active predniSONE (Deltasone) 20 MG tablet Take 1 tablet by mouth Once per day. 01/18/20 Active ketoconazole (NIZOral) 2 % shampoo Apply topically 2 (two) times a week. 120 mL 2 03/27/20 25 Active budesonide-formo terol (Symbicort) 160-4.5 MCG/ACT inhaler Inhale 2 puffs in the morning and at bedtime. Rinse mouth with water after use to reduce aftertaste and incidence of candidiasis. Do not swallow. 1 each 2 5 12:44 PM EST 04/28/20 25 026 Active acetaminophen (Tylenol Extra Strength) 500 MG tablet Take 2 tablets (1,000 mg) by mouth every 6 (six) hours if needed for mild pain for up to 10 days. 30 tablet 5 12:44 PM EST 04/28/20 25 026 Active sodium chloride (Green Nasal [place]) 0.65 % nasal spray Administer 1 spray into each nostril if needed for congestion. 30 mL 12 5 12:44 PM EST 04/28/20 25 026 Active albuterol 1.25 MG/3ML nebulizer solutionIndicati ons:Mild intermittent asthma with exacerbation Take 3 mL (1.25 mg) by nebulization every 4 (four) hours if needed for wheezing or shortness of breath. INHALE 3 ML VIA NEBULIZER EVERY 4 TO 6 HOURS NEEDED FOR BRONCHOSPASM 75 mL 3 05/05/20 25 Active acetaminophen (Tylenol) 325 MG tablet Take 650 mg by mouth. 06/21/19 22 025 Discontin ued(Thera py completed ) albuterol 1.25 MG/3ML nebulizer solution Take 1.25 mg by nebulization every 4 (four) hours if needed for wheezing or shortness of breath. INHALE 3 ML VIA NEBULIZER EVERY 4 TO 6 HOURS NEEDED FOR BRONCHOSPASM 04/23/20 025 Discontin ued(Chanelle hope completed ) Active Problems Problem Noted Date Diagnosed Date Swollen neck 05/01/2025 Mild intermittent asthma with exacerbation 05/01 Seborrheic dermatitis of scalp 03/26/2025 Milia of [...] Encounters Date Type Department Care Team Description 05/05/2025 10:00 AM EST Office Visit [facility]ED[facility] [address] [place] [address] Henrietta Carroll MD Mild intermittent asthma with exacerbation (Primary Dx); Acute cough; Ear ache 05/05/2025 Travel 05/05/2025 Telephone [facility] MED [facility]ED[facility] [address] [place] [address] Luis Pritchard CNP Nurse Triage 04/28/2025 11:00 AM EST Office Visit [address] [address] Heather Araujo FNP Mild intermittent asthma with exacerbation (Primary Dx); Swollen neck 04/28/2025 Travel 04/24/2025 Telephone [facility] [address] [place] [address] Luis Pritchard CNP Nurse Triage 04/23/2025 Orders Only [facility] External Provider, [facility] 03/26/2025 2:40 PM EST Office Visit [facility]ED[facility] [address] [place] [address] Ashley Nelson MD Seborrheic dermatitis of scalp (Primary Dx); Milia of eyelid of left eye 03/26/2025 Travel 03/25/2025 Telephone [facility] [address] [place] [address] Luis Pritchard CNP Nurse Triage 02/07/[address] [address] Luis Pritchard CNP Nurse Triage 02/05/2025 3:30 PM EDT Office Visit [facility] [address] [place] [address] Luis Pritchard CNP Viral illness (Primary Dx) 02/05/2025 Travel 02/05/2025 Telephone [facility] [address] [place] [address] Luis Pritchard CNP chart prep 02/03/2025 Telephone [facility] [address] [place] [address] Luis Pritchard CNP NTTS Follow up from [...] EST Height 180.3 cm (5' 11 ) 05/05/2025 10:17 AM EST Body Mass Index 28.51 04/28/2025 [...] 05/05/2025 10:4 9 AM EST Acute cough T4, FREE Routine 04/28/2025 12:00 PM EST TSH W/REFLEX TO FT4 Routine 04/28/2025 1 2:00 PM EST Swollen neck XR CHEST 2 VIEWS Routine 04/23/2025 9:03 [...] Recently Relevant to Health Maintenance Results * POCT Rapid Covid-19 BinaxNOW (05/05/2025 10:51 AM EST) Only the most recent of2 resultswithin the time period is included. [facility] Rapid COVID Ag Negative QC Media Lot # [id number] Comment:controls passed Lot# Expiration Date [id number] Swab 05/05/2025 10:5 1 AM EST Henrietta Carroll MD POINT OF CARE TEST ENTER/ED IT ORDERABLES Final Result * POCT Rapid Influenza A OSOM (05/05/2025 10:50 AM EST) [facility] Rapid Influenza A Ag Negative Negative, Indeterminate QC Media Lot # [id number] Comment:controls passed Lot# Expiration Date [id number] Swab Nasopharyngeal structure / Unknown 05/05/2025 10:50 AM EST Henrietta Carroll MD POINT OF CARE TEST ENTER/ED IT ORDERABLES Final Result * POCT Rapid Influenza B OSOM (05/05/2025 10:49 AM EST) [facility] Rapid Influenza B Ag Negative Negative, Indeterminate QC Media Lot # [id number] Comment:controls passed Lot# Expiration Date [id number] Swab 05/05/2025 10:4 9 AM EST Henrietta Carroll MD POINT OF CARE TEST ENTER/ED IT ORDERABLES Final Result * (ABNORMAL) TSH W/Reflex to FT4 (04/28/2025 12:00 PM EST) [facility] TSH reflex Free T4 0.29(L) 0.32 - 4.0 uIU/mL [facility] Blood Venous blood specimen / Unknown 04/28/2025 12:00 PM EST 04/28/2025 1:44 PM EST [facility] LAB BLOOD ORDERABLES Final Res ult Performing Organization Address [facility] de Phone Number [facility] [address] [place] [phone] * T4, Free (04/28/2025 12:00 PM EST) Free T4 (Free Thyroxine) 0.97 0.71 - 1.85 ng/dL [facility] 04/28/2025 12:0 0 PM EST 04/28/2025 1:44 PM EST [facility] LAB BLOOD ORDERABLES Final Res ult Performing Organization Address [facility] de Phone Number [facility] [address] [place] [phone] * XR Chest 2 Views (04/23/2025 9:03 AM EST) Anatomical Region Laterality Modality Chest Radiographic Yaritza ging 04/23/2025 9:03 AM EST Narrative 04/23/2025 9:15 AM EST [address] [address] XRay Report Signed Patient: Neo Roque MR#: [id number] : 1995 Acct:[id number] Age/Sex: 29 / M ADM Date: 04/23/25 Loc: .ED Attending Dr: Ordering Physician: Suze Bai Date of Service: 04/23/25 Procedure(s): XR chest 2V Accession Number(s): [id number] cc: Suze Bai; Venus Panda MD Reason [...] in OV> 04/23/25911 DD/ 2 TD/TT: 04/23/25903 Towerman: KATHERINE Procedure Note Donotuseinterpreter, Image - 04/23/[address] [address] XRay Report Signed Patient: Nick Roque#: [id number] : 1995Acct:[id number] Age/Sex: 29 / MADM Date: 04/23/25 Loc: .ED Attending Dr: Ordering Physician: Suze Bai Date of Service: 04/23/25 Procedure(s): XR chest 2V Accession Number(s): [id number] cc: Suze Bai; Venus Panda MD Reason [...] in OV> 04/23/25911 DD/ 2 TD/TT: 04/23/25903 Towerman: KATHERINE [facility] External Provider IMG XR PROCEDURES Final Result * SARS-CoV-2 RNA, Influenza A/B, and RSV RNA, Ql NAAT (04/23/2025 8:34 AM EST) Influenza A PCR NEGATIVE Negative [facility] Influenza B PCR NEGATIVE Negative [facility] Resp Syncy Virus RNA Qual PCR NEGATIVE Negative [facility] SARS COV2 PCR NEGATIVE Negative [facility] Comment:All test results mus t [...] use by authorized laboratories.Testing performed on the [place] GeneXpert utilizingreal-time RT-PCR.All SARS CoV2 and positive influenza A/B results arereported to [facility]. 04/23/2025 8:34 AM EST 04/23/2025 8:41 AM EST Generic External Data Provider LAB MICROBIOLOGY - GENERAL ORDERABLES Final Result [facility] [address] [place] [address] [phone] * CBC auto differential (02/05/2025 3:51 PM EDT) White Blood Count 8.5 4.8 - 10.8 X10*3/uL [facility] Red Blood Count 5.31 4.60 - 5.80 X10*6/uL [facility] Hemoglobin 14.8 14.0 - 18.0 g/dl [facility] Hematocrit 45.6 42.0 - 52.0 % [facility] Mean Corpuscular Volume 85.9 80.0 - 98.0 fL [facility] Mean Corpuscular Hemoglobin 27.9 27.0 - 33.0 pg [facility] Mean Corpuscular HGB Conc 32.5 31.0 - 36.0 g/dl [facility] Red Cell Distribution Width 13.0 11.0 - 16.0 % [facility] Platelet Count 318 160 - 400 X10*3/uL [facility] Mean Platelet Volume 10.4 9.4 - 12.4 fL [facility] Neutrophils Percent Auto 61.8 45 - 73 % [facility] Imm Gran Pct Auto 0.2 0.0 - 0.4 % [facility] Lymphocytes Percent Auto 27.7 20 - 40 % [facility] Monocytes Percent Auto 6.3 2 - 11 % [facility] Eosinophils Percent Auto 3.6 0 - 4 % [facility] Basophils Percent Auto 0.4 0 - 2 % [facility] NRBC Pct Auto 0.0 0.0 - 0.2 /100WBC [facility] Neutrophils Absolute Auto 5.3 2.0 - 8.3 x10*3/uL [facility] Imm Gran Abs Auto 0.02 0.00 - 0.03 X10*3/uL [facility] Lymphocytes Absolute Auto 2.4 1.2 - 4.9 X10*3/uL [facility] Monocytes Absolute Auto 0.5 0.1 - 1.2 X10*3/uL [facility] Eosinophils Absolute Auto 0.3 0.0 - 0.4 X10*3/uL [facility] Basophils Absolute Auto 0.0 0.0 - 0.2 X10*3/uL [facility] NRBC Abs Auto 0.000 0.0 - 0.012 X10*3/uL [facility] Blood Venous blood specimen / Unknown 02/05/2025 3:51 PM EDT 02/05/2025 6:09 PM EDT [facility] LAB BLOOD ORDERABLES Jenn l Result [facility] [address] [place] [phone] * (ABNORMAL) Basic Metabolic Panel (02/05/2025 3:51 PM EDT) Sodium 140 135 - 145 mmol/L [facility] Potassium 3.5 3.3 - 5.1 mmol/L [facility] Chloride 105 96 - 108 mmol/L [facility] Carbon Dioxide 28 22 - 29 mmol/L [facility] Anion Gap 11(L) 12 - 20 [facility] Urea Nitrogen (BUN) 11 9 - 16 mg/dL [facility] Creatinine, Serum 0.77 0.5 - 1.4 mg/dL [facility] Estimated Glomerular Filt Rate >60 [facility] Comment:Chronic Kidney Disea se: Estimated GFR < 60 mL/min/1.06t5Adtxti Kidney Disease: Estimated GFR < 15 mL/min/1.73m2 Glucose 93 60 - 115 mg/dL [facility] Calcium 9.4 8.4 - 10.2 mg/dL [facility] Blood Venous blood specimen / Unknown 02/05/2025 3:51 PM EDT 02/05/2025 6:09 PM EDT [facility] LAB BLOOD ORDERABLES Jenn l Result Performing Organization Address City/[facility]/ZIP Co de Phone Number [facility] [address] [place] [phone] * Influenza B (ID NOW Rapid Molecular) (02/05/2025 3:50 PM EDT) [facility] Influenza B Negative Negative, Indeterminate [facility] QC Media Lot # [facility] Comment:[id number] Lot# Expiration Date [facility] Comment:06/07/2026 Swab 02/05/2025 3:50 PM EDT [facility]ER POINT OF CARE TEST ENTER/ EDIT ORDERABLES Final Result Performing Organization Address [facility] Co de Phone Number [facility] [address] [place] [address] [phone] * Influenza A (ID NOW Rapid Molecular) (02/05/2025 3:49 PM EDT) Influenza A Negative Negative, Indeterminate [facility] QC Media Lot # [facility] Comment:[id number] Lot# Expiration Date [facility] Comment:06/07/2026 Swab 02/05/2025 3:49 PM EDT Luis Pritchard [facility] POINT OF CARE TEST ENTER/ EDIT ORDERABLES Final Result Performing Organization Address City/[facility]/ZIP Co de Phone Number [facility] [address] [place] [address] [phone] * HEPATITIS C AB W/REFL TO HCV RNA, QN, PCR (08/31/2021 10:57 AM EDT) HEPATITIS C ANTIBODY NON-REACT MODESTA NON-REACT MODESTA [facility] INDEX 0.01 <1.00 [facility] Comment: HCV antibody was non-reactive. There is no laboratory evidence of HCV infection. In most cases, no further action is required. However, if recent HCV exposure is suspected, a test for HCV RNA (test code 88967) is suggested. For additional information please refer to http://education.iTOK/faq/ZMV54b3 (This link is being provided for informational/ educational purposes only.) 08/31/2021 10:5 7 AM EDT Daniel Akhtar MD HISTORICAL/NON ORDERABLE LABS Fi nal Result Performing Organization Address City/[facility]/ZIP Co de Phone Number [facility] [address] * HIV 1/2 ANTIGEN/ANTIBODY,FOURTH GENERATION W/RFL (08/31/2021 10:57 AM EDT) HIV-1/2 ANTIGEN AND ANTIBODIES, 4TH GENERATION W/ REFLEX NON-REACT MODESTA NON-REACT MODESTA [facility] Comment: HIV-1 antigen and HIV-1/HIV-2 [...] purpose. For additional information please refer to http://education.iTOK/faq/ECF223 (This link is being provided for informational/ educational purposes only.) The performance of this assay has not been clinically validated in patients less than 2 years old. 08/31/2021 10:5 7 AM EDT us Daniel Akhtar MD LAB BLOOD ORDERABLES Final Resul t [facility] [address] from Last 3 Months or Most Recently Relevant to Health Maintenance Insurance [facility] C3 DENTAL-[facility] [place] [address] [place] [id number] Care Teams Freight And Passenger Agent Relationship Specialty Start Date End Date Luis Pritchard CNP PCP - General Family Medicine 12/13/24
--- OUTSIDE RECORDS SUMMARY | 2025-05-05 12:25 | XMS_ITS | Encounter Summary ---
Author Organization [employer] Address [address] [facility] [address]t [place] [address] Care Team Providers Care Grated Cheese Maker Name Role Phone Venus Panda MD Primary Care Provider [phone] Luis Pritchard CNP Primary Care Provider [phone] Encounter Details Date Type Department Care Team ([facility] Contact Info) Description 01/26/2024 Orders Only [facility] [address] [place], [place] [phone] Henrietta Carroll MD [address] [place] [address] Social History Tobacco Use Types Packs/Day Years [...] on filedocumented in this encounter Care Teams Grated Cheese Maker Relationship Specialty Start Date End Date Venus Panda MD [address] [place] [phone] PCP - General Family Medicine 04/28/15 12/12/24 Luis Pritchard CNP [address] [place] [address] PCP - General Family Medicine 12/13/24 documented as of this encounter
--- OUTSIDE RECORDS SUMMARY | 2025-05-05 12:25 | XMS_ITS | Clinical Summary ---
Author Organization [facility] it Address [address] [place] [address] Care Team Providers Care Party Plan Sales Unit Sales Leader Name Role Phone Unavailable Primary Care Provider [...]
[2025-05-05 14:59] LABS: MANUAL DIFF FLAG NO
[2025-05-05 15:01] LABS: Hematocrit 44.9 % (42.0-52.0); Hemoglobin 14.3 g/dl (14.0-18.0); Imm Gran Abs Auto 0.02 X10*3/uL (0.00-0.03); Imm Gran Pct Auto 0.3 % (0.0-0.4); Lymphocytes Absolute Auto 1.9 X10*3/uL (1.2-4.9); Mean Corpuscular HGB Conc 31.8 g/dl (31.0-36.0); Mean Corpuscular Hemoglobin 27.3 pg (27.0-33.0); Mean Corpuscular Volume 85.9 fL (80.0-98.0); NRBC Abs Auto 0.000 X10*3/uL (0.0-0.012); NRBC Pct Auto 0.0 /100WBC (0.0-0.2); Platelet Count 293 X10*3/uL (160-400); Red Blood Count 5.23 X10*6/uL (4.60-5.80); White Blood Count 7.1 X10*3/uL (4.8-10.8)
== END 2025-05-05 10:48 | disposition home or self-care (01) ==
LOC: HO.CHCLDS 10:47
PROVIDERS: Visit Provider Internal Medicine
DX: J45.21 Mild intermittent asthma with (acute) exacerbation (principal); R05.1 Acute cough
CPT/HCPCS: 36415; 85025; 85652; 86140; 86481

== ENCOUNTER 2025-05-05 11:22 | Outpatient (REF) | payer MEDICAID, SELFPAY ==
--- NOTE | ~2025-05-05 | XR_ITS ---
EXAMINATION: XR CHEST CLINICAL INFORMATION: productive cough COMPARISON: 04/23/2025. TECHNIQUE: 2 views of the chest were obtained. FINDINGS: The cardiac, hilar, and mediastinal contours are normal. The lungs are clear bilaterally. There is no pneumothorax or pleural effusion. There is no focal osseous or soft tissue abnormality. XR/XR chest 2V IMPRESSION: Normal chest. Electronically signed by: Panda Lopez MD 05/05/2025 12:55 PM [facility]
== END 2025-05-05 11:23 | disposition home or self-care (01) ==
LOC: HO.HHCX 11:22
PROVIDERS: PCP Internal Medicine; Visit Provider Internal Medicine
DX: J45.21 Mild intermittent asthma with (acute) exacerbation (principal); R05.1 Acute cough
CPT/HCPCS: 71046

== ENCOUNTER → 2025-05-05 11:27 | Outpatient (BNV) | payer MEDICAID, SELFPAY | PROVIDERS: PCP Internal Medicine; Visit Provider Radiology Diagnostic Radiology | DX: R05.9 Cough, unspecified (principal) | CPT/HCPCS: 71046 ==